=== PATIENT | male | born 1945 | race Caucasian/White ===

== ENCOUNTER 2020-02-02 09:27 | Outpatient (CLI) | payer MEDICARE, SELFPAY ==
--- NOTE | ~2020-02-02 | CT_ITS ---
EXAMINATION: CT lung screening DATE: 02/02/2020 09:46 INDICATION: Personal history of nicotine dependence TECHNIQUE: Computed tomography (CT) of the chest was performed without intravenous contrast. The dose -length product was 164.67 mGy-cm. Automated exposure control and iterative reconstruction technique were employed. COMPARISON: CT dated 04/21/2018 FINDINGS: There is atherosclerosis of the aorta and coronary arteries. No evidence for aneurysm. Hear t size normal. No significant pleural or pericardial effusion. There is a 3.6 x 2 cm left adrenal mas s consistent with adenoma. Stable small right adrenal mass also consistent with adenoma. Small hiatal hernia. Tiny 3 mm nodule right upper lobe unchanged, image 31. There is calcified granuloma in the r ight upper lobe. There is mild emphysema. There is atelectasis of the lower lung zones. Moderate thor acic spondylosis. IMPRESSION: 1. Lung-RADS category 2: Benign appearance or behavior. Continue annual screening with noncontrast lo w-dose chest CT in 12 months. Reviewed, dictated and finalized at location A. TRICAL PROSPECTOR IMPRESSION: 1. Lung-RADS category 2: Benign appearance or behavior. Continue annual screeni ng with noncontrast low-dose chest CT in 12 months.
== END 2020-02-02 09:28 | disposition home or self-care (01) ==
PROVIDERS: PCP Internal Medicine; Visit Provider Nurse Practitioner
DX: Z12.2 Encounter for screening for malignant neoplasm of respiratory organs (principal); Z87.891 Personal history of nicotine dependence
CPT/HCPCS: G0297

== ENCOUNTER 2020-04-18 10:47 | Outpatient (CLI) | payer MEDICARE, SELFPAY | END 2020-04-18 10:48 | disposition home or self-care (01) | LOC: ANHCOVIDVC 10:47 | PROVIDERS: PCP Internal Medicine | DX: Z23 Encounter for immunization (principal) | CPT/HCPCS: 0001A; 91300 ==

== ENCOUNTER 2020-05-09 10:19 | Outpatient (CLI) | payer MEDICARE, SELFPAY | END 2020-05-09 10:20 | disposition home or self-care (01) | LOC: ANHCOVIDVC 10:19 | PROVIDERS: PCP Internal Medicine | DX: Z23 Encounter for immunization (principal) | CPT/HCPCS: 0002A; 91300 ==

== ENCOUNTER → 2020-10-02 11:32 | Outpatient (REF) | payer MEDICARE, SELFPAY | LOC: ANHLAB 11:32 | PROVIDERS: PCP Internal Medicine; Visit Provider Nurse Practitioner | DX: D49.2 Neoplasm of unspecified behavior of bone, soft tissue, and skin (principal); L30.9 Dermatitis, unspecified | CPT/HCPCS: 88305 ==

== ENCOUNTER → 2021-08-23 09:16 | Outpatient (CLI) | payer MEDICARE, SELFPAY ==
--- NOTE | ~2021-08-23 | XR_ITS ---
XR lumbar spine 2-3V DATE: 08/23/2021 09:53 INDICATION: Low back pain TECHNIQUE: AP, lateral, coned lateral lumbosacral views COMPARISON: None FINDINGS: Osteopenia. Diffuse idiopathic skeletal hyperostosis of the thoracic spine. There is mild rotatory dextroscoliosis and severe degenerative disc of the lumbar spine. No fracture or bone destruction is evident. No spondylolisthesis. The included lower thoracic and lum bar pedicles are intact. The sacroiliac joints are intact. Status post bilateral total hip arthroplasty. IMPRESSION: Severe degenerative disc disease throughout the lumbar and lumbosacral spine Diffuse idiopathic skeletal hyperostosis of the thoracic spine Mild rotatory dextroscoliosis Osteopenia Status post bilateral total hip arthroplasty Reviewed, dictated and finalized at location A. IMPRESSION: Severe degenerative disc disease throughout the lumbar and lumbosac ral spine Diffuse idiopathic skeletal hyperostosis of the thoracic spine Mild rotatory dextroscoliosis Osteopenia Status post bilateral total hip arthroplasty
== END ==
PROVIDERS: PCP Internal Medicine; Visit Provider Nurse Practitioner
DX: M51.36 Other intervertebral disc degeneration, lumbar region (principal); M51.37 Other intervertebral disc degeneration, lumbosacral region; M85.88 Other specified disorders of bone density and structure, other site
CPT/HCPCS: 72100

== ENCOUNTER 2021-09-26 00:17 | Day surgery (SDC) | payer MEDICARE, SELFPAY ==
[2021-09-16 13:52] VITALS: BMI 28.6
--- NOTE | 2021-09-25 13:40 | PM.HPGS ---
History of Present Illness History of Present Illness Consent: Risks, benefits, and alternatives have been discussed and questions answered. Patient agrees to proceed with procedure. Chief complaint: neoplasm screening Narrative: Ricardo Lemos is a 75 year old male Referred for colon cancer screening. Review of Systems Review of Systems: All systems reviewed & are unremarkable except as noted in HPI and below PMFSH Past Medical History Medical History Benign prostatic hyperplasia FHx: prostate cancer Nicotine abuse Family History Family History Mother Family history of malignant neoplasm of stomach Father Malignant neoplasm of prostate Family history of malignant neoplasm of bone Social History Social History Smoking packs per day: 0.5 Smoking cigarettes per day: 10.0 Years smoked: 58 Smoking pack-years: 29.00 Smoking status: Current every day smoker Tobacco type: cigarettes Second hand tobacco smoke exposure: No Alcohol intake: current Drinks per week: 2 Alcohol use details: on occasion Substance use: never Substance use type: does not use Living arrangements: with family Spiritual care concerns: No Meds Home Medications and Allergies Home Medications Medication Instructions Recorded Confirmed Type vitamin B complex (B 1 tablet PO DAILY 02/06/21 09/26/21 History Complex-Vitamin B12 tablet) atorvastatin 20 mg tablet 20 mg PO DAILY #90 tabs 08/20/21 09/26/21 Rx tamsulosin 0.4 mg capsule 0.4 mg PO DAILY #90 caps 08/20/21 09/26/21 Rx Allergies Allergy/AdvReac Type Severity Reaction Status Date / Time No Known Allergies Allergy Verified 09/26/21 07:35 Exam Resp: Auscultation: clear to auscultation bilaterally Cardio: Rate: regular rate Rhythm: regular rhythm GI: GI Palp: Yes Soft to palpation and No Tenderness to palpation present (GI) Assessment and Plan Assessment and plan (1) Colon cancer screening: Code(s): Z12.11 - Encounter for screening for malignant neoplasm of colon Status: Acute Assessment and Plan: Colonoscopy with possible biopsy or polypectomy or cautery or injection of substances.
[2021-09-26 07:30] VITALS: BP 136/77; PULSE 59; RESP 18; TEMP 36.4; O2SAT 93; BMI 28.9
--- NOTE | 2021-09-26 07:52 | WPDANESEPPF ---
Anes - Initial Pre Proc Eval Procedure: Operation Date: 09/26/21 08:30 Proposed Procedures p Screening Colonoscopy - Mohamud Tinoco MD Date/Time: 09/26/21 07:52 Surgeon: Mohamud Tinoco MD Pre Op Diagnosis: neoplasm screening Patient Data Age: 75 Gender: M Height: 1.75 m Weight: 88.9 kg Last Vital Signs Temp 97.5 F L 09/26/21 07:30 Pulse 59 L 09/26/21 07:30 Resp 18 09/26/21 07:30 BP 136/77 09/26/21 07:30 Pulse Ox 93 09/26/21 07:30 O2 Del Method Room Air 09/26/21 07:30 Allergies Allergy/AdvReac Type Severity Reaction Status Date / Time No Known Allergies Allergy Verified 09/26/21 07:35 Home Medications Medication Instructions Recorded Confirmed Type vitamin B complex (B 1 tablet PO DAILY 02/06/21 09/26/21 History Complex-Vitamin B12 tablet) atorvastatin 20 mg tablet 20 mg PO DAILY #90 tabs 08/20/21 09/26/21 Rx tamsulosin 0.4 mg capsule 0.4 mg PO DAILY #90 caps 08/20/21 09/26/21 Rx Patient hx anesthesia problems: none Family hx anesthesia problems: none Results Review: All pre-operative results and documents have been reviewed as part of the pre-operative evaluation. [facility] Past Medical History Medical History Benign prostatic hyperplasia FHx: prostate cancer Nicotine abuse Family History Family History Mother Family history of malignant neoplasm of stomach Father Malignant neoplasm of prostate Family history of malignant neoplasm of bone Social History Social History Smoking packs per day: 0.5 Smoking cigarettes per day: 10.0 Years smoked: 58 Smoking pack-years: 29.00 Smoking status: Current every day smoker Tobacco type: cigarettes Second hand tobacco smoke exposure: No Alcohol intake: current Drinks per week: 2 Alcohol use details: on occasion Substance use: never Substance use type: does not use Living arrangements: with family Spiritual care concerns: No Anes - Eval Final PreProcedure Day of Procedure 08/18/22 07:52 Patient weight: normal Heart: regular rate and rhythm Lungs: clear to auscultation Airway: Mallampati scale class II Neurological: alert and oriented Last oral intake: >/= 8 hours ASA classification: II Emergent: no Anesthetic plan: proceed Anesthesia type and monitoring: general GIVS and standard monitoring Results Review: All pre-operative results and documents have been reviewed as part of the pre-operative evaluation. Informed Consent: The patient's anesthetic plan and its attendant risks and benefits were discussed with the patient/family/POA. Questions were solicited and answers provided to the satisfaction of the patient/family/POA.
[2021-09-26] MEDS: LACTATED RINGERS 1,000 ML 150 ML IV CONT (07:54)
--- NOTE | 2021-09-26 08:27 | ECG_ITS ---
Measurements Intervals [place] Rate: 79 P: 62 MI: 179 QRS: -50 QRSD: 83 T: 48 QT: 370 QTc: 426 Interpretive Statements SINUS RHYTHM WITH FREQUENT SUPRAVENTRICULAR PREMATURE COMPLEXES IN A BIGEMINAL PATTERN INFERIOR MYOCARDIAL INFARCTION [40+ ms Q WAVE AND/OR ST/T ABNORMALITY IN II/aVF], PROBABLY OLD ABNORMAL ECG Electronically Signed On 09-26-2021 9:40:30 CDT by Jeferson Sanchez M.D.
[2021-09-26 08:40] VITALS: BP 119/66; PULSE 47; RESP 21; O2SAT 97
--- NOTE | 2021-10-01 14:03 | SUR.PREOP ---
EM charges removed because of room charges applied
== END 2021-09-26 09:00 | disposition home or self-care (01) ==
PROVIDERS: PCP Internal Medicine; Visit Provider Internal Medicine Gastroenterology
PROC: 0DJD8ZZ Inspection of Lower Intestinal Tract, Via Natural or Artificial Opening Endoscopic (ICD-10-PCS; CPT 45378; principal; 2021-09-26 08:30)
DX: Z12.11 Encounter for screening for malignant neoplasm of colon (principal); Z53.09 Procedure and treatment not carried out because of other contraindication; R00.1 Bradycardia, unspecified; N40.0 Benign prostatic hyperplasia without lower urinary tract symptoms; Z85.46 Personal history of malignant neoplasm of prostate; F17.210 Nicotine dependence, cigarettes, uncomplicated; I25.2 Old myocardial infarction
CPT/HCPCS: G0121; 93005; J7120

== ENCOUNTER → 2022-04-15 09:27 | Outpatient (CLI) | payer MEDICARE, SELFPAY ==
--- NOTE | ~2022-04-15 | XR_ITS ---
EXAM: XR lumbar spine min 4V DATE: 04/15/2022 10:01 HISTORY: chronic Low back pain radiating down Rt leg . COMPARISON: 08/23/2021. Ultrasound aorta 01/09/2014. FINDINGS: Senescent/interstitial opacities in the lung bases. Lumbar scoliosis. Osteopenia. 5 nonrib- bearing lumbar-type vertebral bodies. Pedicles intact. Normal vertebral body alignment. Vertebral bod y heights preserved. Multilevel moderate-severe disc space narrowing and marginal osteophytosis. Vacu um disc phenomenon at L2-3 and L3-4. Multilevel facet hypertrophy and sclerosis with interspinous matthew rowing. No fracture or dislocation. 3.1 cm fusiform abdominal aortic aneurysm. Partially visualized b ilateral hip arthroplasties. IMPRESSION: Multilevel degenerative disc disease, severe at L2-3 and L3-4. Multilevel severe facet ar thropathy. 3.1 cm abdominal aortic aneurysm, recommend ultrasound of the aorta for further evaluation . Reviewed, dictated and finalized at location K. ULUS PROFESSOR IMPRESSION: Multilevel degenerative disc disease, severe at L2-3 and L3-4. Mult ilevel severe facet arthropathy. 3.1 cm abdominal aortic aneurysm, recommend ul trasound of the aorta for further evaluation.
--- NOTE | ~2022-04-15 | XR_ITS ---
EXAM: XR hip RT 2V w AP pelvis DATE: 04/15/2022 10:02 HISTORY: Pain in right hip, chronic low back pain . COMPARISON: 04/15/2014. FINDINGS: Decreased mineralization. No fracture or dislocation. No lytic or blastic lesion. Severe l umbar degenerative disc disease. Bilateral uncomplicated appearing hip arthroplasties, partially visu alized on the left. Scattered pelvic pelvic and hip enthesopathy and heterotopic bone formation super ior to the right greater trochanter. No erosion or periosteal change. Vascular calcifications. Pelvic phleboliths. IMPRESSION: No acute osseous finding in the pelvis or right hip. Small foci of heterotopic bone forma tion adjacent to the right greater trochanter. Otherwise, no radiographic evidence of hardware-relate d complication. Reviewed, dictated and finalized at location K. NCE ATTORNEY IMPRESSION: No acute osseous finding in the pelvis or right hip. Small foci of heterotopic bone formation adjacent to the right greater trochanter. Otherwise, no radiographic evidence of hardware-related complication.
== END ==
PROVIDERS: PCP Internal Medicine; Visit Provider Nurse Practitioner Family
DX: M25.551 Pain in right hip (principal); M51.36 Other intervertebral disc degeneration, lumbar region
CPT/HCPCS: 72110; 73502

== ENCOUNTER 2022-04-22 13:42 | Emergency (ER) | payer MEDICARE, SELFPAY ==
[2022-04-22 14:35] VITALS: BP 120/73; PULSE 79; RESP 14; TEMP 36.6; O2SAT 98
--- NOTE | 2022-04-22 16:00 | ED.GENADULT ---
HPI - General Adult General Chief complaint: Skin/Abscess/Foreign Body Stated complaint: wound Time Seen by Provider: 04/22/22 14:58 History of Present Illness HPI narrative: 76-year-old male presenting to the emergency department for evaluation of a right bursitis. Patient states over the last 2 weeks he started developing some redness and tenderness over his right elbow that began worsening over the last 3 days. Patient initially went to see his primary care physician and was sent in for further work-up for concern for septic arthritis. Related Data Home Medications Medication Instructions Recorded Confirmed vitamin B complex (B 1 tablet PO DAILY 02/06/21 05/02/22 Complex-Vitamin B12 tablet) Allergies Allergy/AdvReac Type Severity Reaction Status Date / Time No Known Allergies Allergy Verified 05/02/22 09:14 Review of Systems Review of Systems: All systems reviewed & are unremarkable except as noted in HPI and below PMFSH Past Medical History Medical History B12 deficiency Benign prostatic hyperplasia FHx: prostate cancer Low back pain Lung nodule, multiple Mixed hyperlipidemia Nicotine abuse Family History Family History Mother Family history of malignant neoplasm of stomach Father Malignant neoplasm of prostate Family history of malignant neoplasm of bone Social History Social History (Updated 05/02/22 @ 09:20 by Brenda Butler CMA) Smoking packs per day: 0.5 Smoking cigarettes per day: 10.0 Years smoked: 58 Smoking pack-years: 29.00 Smoking status: Current every day smoker Tobacco type: cigarettes Second hand tobacco smoke exposure: No Alcohol intake: current Drinks per week: 1 Substance use: never Substance use type: does not use Lack of Transportation: No Lack of Food: Never True Current Housing: I Have Housing Concerned About Future Housing: No Difficulty Paying Gas/Electric Bills: No Difficulty Paying for Meds: No Currently Unemployed: No Education: High School Diploma/GED Difficulty w/ Childcare or Family Care: No Living arrangements: with family Spiritual care concerns: No Exam Narrative: APPEARANCE: Well appearing, no pain, no distress, well-nourished. HEAD: normocephalic, atraumatic. EYES: PERRLA/EOMI, conjunctivae clear. NOSE: Normal no drainage NECK: Supple. No adenopathy, no masses. RESPIRATORY: Airway patent, respirations nonlabored. Clear to auscultation bilaterally, no rales, rhonchi, wheezing. CARDIOVASCULAR: Regular rate and rhythm without murmurs rubs or gallops. ABDOMINAL: Soft, nontender, nondistended, normal bowel sounds MUSCULOSKELETAL: Normal range of motion of the right elbow. No tenderness to palpation of the joint. Patient does have an inflamed bursa over the right elbow. Exam is consistent with a bursitis. NEURO: Alert. Cranial nerves II through XII intact. Grossly intact SKIN: Warm, dry. Normal Color Course Course Emergency Course: 76-year-old male presenting for possible septic bursitis. Abscess was drained with an 18-gauge needle and then with an 11-gauge needle. Copious amount of purulent material was obtained. Cultures were sent. Patient was encouraged of close follow-up with his primary care physician. All question concerns were addressed Vital Signs Vital signs: Vital Signs Temperature 97.9 F 04/22/22 14:35 Pulse Rate 79 04/22/22 14:35 Respiratory Rate 14 04/22/22 14:35 Blood Pressure 120/73 04/22/22 14:35 Pulse Oximetry 98 04/22/22 14:35 Oxygen Delivery Room Air 04/22/22 14:35 Temperature 97.9 F 04/22/22 14:35 Pulse Rate 79 04/22/22 14:35 Respiratory Rate 14 04/22/22 14:35 Blood Pressure 120/73 04/22/22 14:35 Pulse Oximetry 98 04/22/22 14:35 Oxygen Delivery Room Air 04/22/22 14:35 Procedures Abscess I/D upper extremity:
[2022-04-22] MEDS: LIDOCAINE HCL 1% LOCAL INJ 10 ML VIAL (16:30)
[2022-04-22] MEDS: CLINDAMYCIN HCL 150 MG CAP PO (16:54)
== END 2022-04-22 17:07 | disposition home or self-care (01) ==
PROVIDERS: Emergency Provider Emergency Medicine; PCP Internal Medicine
DX: M70.31 Other bursitis of elbow, right elbow (principal); E78.2 Mixed hyperlipidemia; E53.8 Deficiency of other specified B group vitamins; N40.0 Benign prostatic hyperplasia without lower urinary tract symptoms; F17.210 Nicotine dependence, cigarettes, uncomplicated
CPT/HCPCS: 20605; 23931; 87070; 87075; 87205; 99283; A9270

== ENCOUNTER 2022-07-30 01:34 | Day surgery (SDC) | payer MEDICARE, SELFPAY ==
--- NOTE | 2022-07-21 15:00 | PC.NURSE ---
Report to the Outpatient Waiting Room, entrance under the green pavilion located off [facility], at time _1130 on date _07/30/22 . Planned Procedure Time: _1330 . Time changes happen often and if your time is changed the preop area will call you the afternoon before. - You and your visitor will be asked to self-screen and do not enter if you have any COVID symptoms. - A mask is optional within the hospital at this time. Patients may have clear liquids (water, carbonated beverages, clear teas, apple juice) until 3 hours prior to surgery with a maximum of 20 ounces. - No food from midnight until time of surgery - Infants may have breast milk until 4 hours before surgery, infant formula 6 hours prior to surgery. - Children will be allowed to drink immediately following surgery. If applicable, please bring a bottle or sippy cup to assist with drinking. Juice, water, soda, and popsicles are readily available. For infants on formula, please bring formula the day of surgery. Pacifiers are allowed. Take the following medications with a SIP of water the morning of surgery: _NONE DO NOT STOP ANY OF YOUR OTHER PRESCRIPTION MEDICATIONS PRIOR TO SURGERY ?EXCEPT THE FOLLOWING Medications to discontinue per physician ____VITAMIN B12 3 DAYS PRE OP.LAST DOSE 07/26/22 Please no make-up, nail bahamian, hairspray, perfume, deodorant, or body powder the day of surgery. No jewelry (including any body piercings) or valuables the day of surgery, leave them at home. Please take a shower or bath the night before, or the morning of, surgery with an antibacterial soap. Wear comfortable, loose fitting clothing. Children are encouraged to wear pajamas. - Jewelry must be removed prior to entering the operating room. Rings and piercings that are not removed may be cut off. - The hospital will not accept responsibility for valuables. - Please leave all valuables, including medications, at home the day of surgery. If you are going home after surgery, a licensed courier driver must drive you home. - NO public transportation without another adult if you receive anesthesia. - We recommend that an adult stay with you for 24 hours following discharge. - We also recommend that you do not drive, make important decision, drink alcoholic beverages, or take any drugs that were not prescribed by your health care provider for at least 24 hours after your discharge time. For Pediatric surgeries, we recommend two adults accompany the child home. Follow any additional instructions given to you from your surgeon. If you or anyone in your household have experienced Covid symptoms in the past week, please notify your surgeon or the nurse liaison at the phone number below for possible testing. Telephone instructions given to __PATIENT and asked if any additional questions and then verbalized understanding. Patient advised to call surgeon office or pre surgery nurse liaison [phone] if any additional questions.
[2022-07-21 15:08] VITALS: BMI 27.7
--- NOTE | 2022-07-30 07:46 | WPDHPUPDATE1 ---
History and Physical Update Update Date/Time: 07/30/22 07:46 History and Physical has been reviewed, including an updated exam of the patient. There are NO changes in the patient's condition. Risks, benefits, and alternatives have been discussed and questions answered. Patient agrees to proceed with procedure.
[2022-07-30 07:53] VITALS: BP 113/51; PULSE 86; RESP 16; TEMP 36.3; O2SAT 96
[2022-07-30] MEDS: LACTATED RINGERS 1,000 ML 30 ML IV CONT (08:09)
--- NOTE | 2022-07-30 08:55 | WPDANESEPPF ---
Anes - Initial Pre Proc Eval Procedure: Operation Date: 07/30/22 09:30 Proposed Procedures p Excision Skin Cyst of Chest - Pradeep Thorne MD Date/Time: 07/30/22 08:55 Surgeon: Pradeep Thorne MD Pre Op Diagnosis: subcutaneous mass on chest Patient Data Age: 76 Gender: M Height: 1.75 m Weight: 83.6 kg Last Vital Signs Temp 36.3 C L 07/30/22 07:53 Pulse 86 07/30/22 07:53 Resp 16 07/30/22 07:53 BP 113/51 L 07/30/22 07:53 Pulse Ox 96 07/30/22 07:53 O2 Del Method Room Air 07/30/22 07:53 Allergies Allergy/AdvReac Type Severity Reaction Status Date / Time No Known Allergies Allergy Verified 07/30/22 07:35 Home Medications Medication Instructions Recorded Confirmed Type atorvastatin 20 mg tablet 20 mg PO DAILY #90 tabs 08/20/21 07/21/22 Rx tamsulosin 0.4 mg capsule 0.4 mg PO DAILY #90 caps 08/20/21 07/21/22 Rx cyanocobalamin (vitamin B-12) 1,000 mcg PO DAILY 07/21/22 07/21/22 History 1,000 mcg tablet ibuprofen 800 mg tablet 800 mg PO BID PRN Pain 07/21/22 07/21/22 History Patient hx anesthesia problems: none Family hx anesthesia problems: none Results Review: All pre-operative results and documents have been reviewed as part of the pre-operative evaluation. [facility] Past Medical History Medical History B12 deficiency Benign prostatic hyperplasia FHx: prostate cancer Low back pain Lung nodule, multiple Mixed hyperlipidemia Nicotine abuse Surgical History Surgical History (Updated 07/30/22 @ 08:55 by Iglesia Villarreal MD) H/O colonoscopy Family History Family History Mother Family history of malignant neoplasm of stomach Father Malignant neoplasm of prostate Family history of malignant neoplasm of bone Social History Social History Smoking packs per day: 0.5 Smoking cigarettes per day: 10.0 Years smoked: 60 Smoking pack-years: 30.00 Smoking status: Current every day smoker Tobacco type: cigarettes Second hand tobacco smoke exposure: No Alcohol intake: current Drinks per week: 1 Substance use: never Substance use type: does not use Lack of Transportation: No Lack of Food: Never True Current Housing: I Have Housing Concerned About Future Housing: No Difficulty Paying Gas/Electric Bills: No Difficulty Paying for Meds: No Currently Unemployed: No Education: High School Diploma/GED Difficulty w/ Childcare or Family Care: No Living arrangements: with family Spiritual care concerns: No Anes - Eval Final PreProcedure Day of Procedure 07/30/22 08:55 Patient weight: overweight Heart: regular rate and rhythm Lungs: clear to auscultation Airway: Mallampati scale class II Neurological: alert and oriented Last oral intake: 2 hours (black coffee 7am) ASA classification: III Emergent: no Anesthetic plan: proceed Anesthesia type and monitoring: general GIVS and standard monitoring Results Review: All pre-operative results and documents have been reviewed as part of the pre-operative evaluation. Informed Consent: The patient's anesthetic plan and its attendant risks and benefits were discussed with the patient/family/POA. Questions were solicited and answers provided to the satisfaction of the patient/family/POA.
[2022-07-30] MEDS: ceFAZolin 2 GM/D5W 50 ML 2 GM/50 ML BAG IVPB (09:28)
[2022-07-30] MEDS: BUPIVACAINE/EPINEPHRINE 0.5% 50 ML VIAL 30 ML INFILTRATE (09:49)
[2022-07-30 10:11] VITALS: BP 101/62; PULSE 73; RESP 16; O2SAT 94
--- NOTE | 2022-07-30 10:11 | W.PM.PROC2 ---
Procedure Note - Detailed Date of Procedure 07/30/22 Pre-op Diagnosis subcutaneous mass on chest Post-op Diagnosis Same Procedure Performed Excision 3.5 cm subcutaneous mass pre sternal chest with 2 mm margins, 3.9 cm excision. 8.6 cm layered closure Surgeon Pradeep Thorne MD Hand Buffing Wheel Former [facility] Anesthesia MAC and Local Indications Patient noticed a subcutaneous nodule in the center of his chest over his sternum about 2 months ago. It has increased in size. It has the appearance of an epithelial inclusion cyst. He is taken to surgery now for excision Findings Nodule was not entered. About 2 mm margins were taken around the nodule as well as the overlying skin. An 8.6 cm ellipse of skin was taken. The lesion was limited to the subcutaneous tissue. Description of Procedure Patient was seen in the preoperative holding area. The area of the subcutaneous nodule was marked on the skin. He was taken to surgery and anesthesia was introduced. The proposed incision was marked on the skin. This was a transversely oriented ellipse. Local was infiltrated throughout the skin and subcutaneous all around the anticipated area of incision as well as the area around the lesion. Incision was made and dissection was carried down through the skin. Cautery was used for hemostasis. The lesion was then dissected free from the subcutaneous taking about 2 mm margins all around it. The lesion did extend fairly deep into the subcutaneous but did not attached itself to any of the sternal tissues. It was completely removed. The lesion was measured and was 3.5 x 2.5 x 3 cm in dimension. The ellipse was a 0.6 cm in length. Additional local was infiltrated in the depths of the wound. Subcutaneous undermining was carried out in the deeper aspect of the subcutaneous on both the upper and lower aspect of the excision. Woody's fascia was then closed with interrupted 3-0 Vicryl suture. Some superficial subcutaneous 3-0 Vicryl sutures were also placed. The skin was loosely approximated with subcuticular interrupted 4-0 Vicryl skin suture. The skin was finally closed with a running 4-0 Monocryl skin suture. The wound was dressed with Exofin surgical adhesive. Patient was awakened and taken to recovery in good condition. Sponge and needle counts were correct x2. Estimated Blood Loss -2 Drains No Packing No Pathology Yes (Subcutaneous mass with overlying skin) Complications No immediate complications Condition Stable Disposition Same day [facility] Billing Surgery - Charge Forward: Surgery Billing (Excision 3.5 cm subcutaneous mass of the chest with 2 mm margins, 3.9 cm excision. 8.6 cm layered wound closure.)
[2022-07-30 10:41] VITALS: BP 117/59; PULSE 62; RESP 16; O2SAT 94
== END 2022-07-30 10:59 | disposition home or self-care (01) ==
PROVIDERS: PCP Nurse Practitioner Family; Visit Provider Surgery
PROC: (CPT 11604; principal; 2022-07-30 09:30)
DX: C79.2 Secondary malignant neoplasm of skin (principal); E78.5 Hyperlipidemia, unspecified; E53.8 Deficiency of other specified B group vitamins; N40.0 Benign prostatic hyperplasia without lower urinary tract symptoms; F17.210 Nicotine dependence, cigarettes, uncomplicated
CPT/HCPCS: 11604; 12034; 88304; 88313; 88342; J0690; J2405; J2704; J3010; J7120

== ENCOUNTER 2022-08-19 08:02 | Outpatient (CLI) | payer MEDICARE, SELFPAY ==
--- NOTE | ~2022-08-19 | MMUS_ITS ---
EXAMINATION: MM diagnostic kelly BI w navid, US breast BI complete HISTORY: Right chest wall mass TECHNIQUE: Full field and spot ML, MLO and CC 3-D tomosynthesis images of the breasts were performed and synthetic 2-D images were generated. CAD analysis was submitted and interpreted. High resolution bilateral targeted breast ultrasound examination was performed. COMPARISON: None BREAST PARENCHYMAL COMPOSITION: There are scattered areas of fibroglandular density. FINDINGS: MAMMOGRAPHIC FINDINGS: Approximately 2.5 cm irregular high density mass is noted in the mid to upper outer right breast. The irregular margins and high density highly suggestive of malignancy. There is an approximately 9 mm incompletely circumscribed mildly irregular mass in the posterior mid left breast. ULTRASOUND: Right breast: 9:00: Irregular heterogeneous hypoechoic solid mass measuring 2.7 x 2.4 x 2.6 cm, with prominent inte rnal vascularity, with through transmission. This lesion is very suspicious. Ultrasound-guided biopsy is recommended. Left breast: 3:00: 9.8 x 7.3 x 8.5 mm irregular hypoechoic solid lesion within completely circumcision margins, mancini spicious. Ultrasound-guided biopsy is recommended. IMPRESSION: 1. Bilateral suspicious breast masses 2. Bilateral ultrasound-guided breast biopsy is recommended BI-RADS category 4, suspicious findings. Reviewed, dictated and finalized at location A. IMPRESSION: 1. Bilateral suspicious breast masses 2. Bilateral ultrasound-guided breast biopsy is recommended BI-RADS category 4, suspicious findings.
== END 2022-08-19 08:03 | disposition home or self-care (01) ==
LOC: CHSIMG 08:04
PROVIDERS: PCP Nurse Practitioner Family; Visit Provider Surgery
DX: N64.59 Other signs and symptoms in breast (principal); R92.8 Other abnormal and inconclusive findings on diagnostic imaging of breast
CPT/HCPCS: 76641; 76642; 77061; 77062; 77065; 77066; G0279

== ENCOUNTER 2022-08-20 10:16 | Outpatient (CLI) | payer MEDICARE, SELFPAY ==
[2022-08-20 10:39] LABS: Basophils Absolute Auto 0.2 K/mm3 (0.0-0.1); Basophils Percent Auto 1.3 % (0.2-1.2); Eosinophils Absolute Auto 0.2 K/mm3 (0-0.3); Eosinophils Percent Auto 1.7 % (0-4.4); Hematocrit 43.2 % (42.0-52.0); Hemoglobin 13.9 g/dL (14.0-18.0); Immature Granulocyte Absolute 0.28 K/mm3 (0.00-0.031); Immature Granulocyte Percent A 2.4 % (0-0.5); Lymphocytes Absolute Auto 1.49 K/mm3 (0.9-3.2); Lymphocytes Percent Auto 12.8 % (18.3-44.2); Mean Corpuscular HGB Conc 32.2 g/dl (32-36); Mean Corpuscular Hemoglobin 31.5 pg (26-34); Mean Platelet Volume 8.1 fl (7.4-10.4); Monocytes Absolute Auto 1.5 K/mm3 (0.1-0.6); Monocytes Percent Auto 13.1 % (2.6-8.5); Neutrophils Percent Auto 68.7 % (45.5-73.1); Platelet Count Result 501 k/mm3 (150-375); Red Blood Count 4.41 M/mm3 (4.6-6.20); Red Cell Distribution Width 13.2 % (11.5-14.5); White Blood Count 11.6 K/mm3 (4.5-10.0)
[2022-08-20 14:44] LABS: Alanine Aminotransferase 21 U/L (6-50); Alkaline Phosphatase 101 U/L (38-126); Anion Gap -1 mmol/L (8-16); Aspartate Amino Transferase 27 U/L (17-59); Bilirubin,Total 0.5 mg/dL (0.2-1.3); Blood Urea Nitrogen 13 mg/dL (9-20); Calcium 9.1 mg/dL (8.4-10.2); Carbon Dioxide 36 mmol/L (22-30); Chloride 95 mmol/L (98-107); Estimated Glomerular Filt Rate > 60; Glucose 86 mg/dL (65-110); Potassium 4.5 mmol/L (3.4-5.0); Sodium 130 mmol/L (137-145)
[2022-08-23 05:56] LABS: CA 15-3 526 U/mL (<32)
== END 2022-08-20 10:17 | disposition home or self-care (01) ==
LOC: ANHLAB 10:18
PROVIDERS: PCP Nurse Practitioner Family; Visit Provider Internal Medicine Hematology & Oncology
DX: C50.921 Malignant neoplasm of unspecified site of right male breast (principal); C50.922 Malignant neoplasm of unspecified site of left male breast
CPT/HCPCS: 36415; 80053; 85025; 86300

== ENCOUNTER → 2022-08-21 09:10 | Outpatient (REF) | payer MEDICARE, SELFPAY | LOC: ANHLAB 09:10 | PROVIDERS: Visit Provider Physician Assistant Surgical | DX: R92.8 Other abnormal and inconclusive findings on diagnostic imaging of breast (principal); N63.10 Unspecified lump in the right breast, unspecified quadrant | CPT/HCPCS: 88305; 88342 ==

== ENCOUNTER → 2022-08-25 07:59 | Outpatient (CLI) | payer MEDICARE, SELFPAY ==
--- NOTE | ~2022-08-25 | MR_ITS ---
MRI of the lumbar spine Clinical History: Spinal stenosis Technique: Axial T2-weighted images, and sagittal T1-weighted, T2-weighted, and T2 fat-sat images wer e acquired. Findings: There is no fracture or subluxation of the lumbar spine. There is mild dextroscoliosis of l umbar spine. No suspicious bone marrow signal abnormality seen. At L1-L2, there is advanced degenerative disc narrowing with minimal disc bulge. There is moderate fa cet arthropathy. No central canal stenosis. There is moderate left neural foraminal narrowing and mod erate to severe right neural foraminal narrowing. At L2-L3, there is moderate degenerative disc narrowing. There is diffuse disc bulge and moderate fac et arthropathy. No harrison central canal stenosis. There is moderate to severe bilateral neural foramin al narrowing. At L3-L4, there is severe degenerative disc narrowing. There is disc bulge and severe facet arthropat hy, resulting in moderate to severe central canal stenosis. There is moderate to severe bilateral ivy ral foraminal narrowing. At L4-L5, there is severe degenerative disc narrowing. There is diffuse disc bulge with advanced face t arthropathy and right lateral recess stenosis. There is severe bilateral neural foraminal narrowing , right worse than left. At L5-S1, there is minimal disc bulge. There is severe facet arthropathy, right worse than left. No c entral canal stenosis. There is severe right neural foraminal narrowing. Left neural foramen is minim ally narrowed. There are large mass lesions in the pelvis which appear to arise of the bilateral iliac bones, measur ing at least 7.6 m in diameter on the right, and 6.5 cm in diameter on the left. Impression: Large mass lesions bilaterally in the pelvis, which appear to possibly arise from the bilateral iliac bones, as detailed above. Neoplastic/metastatic lesions are suspected. These are incompletely includ ed given the relative narrow [id number] for L-spine MR. Contrast-enhanced abdominopelvic CT scan r ecommended for best initial assessment. Follow-up pelvic MR imaging may be of use as well. 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 Reviewed, dictated and finalized at location M. Impression: Large mass lesions bilaterally in the pelvis, which appear to possibly arise fr om the bilateral iliac bones, as detailed above. Neoplastic/metastatic lesions are suspected. These are incompletely included given the relative narrow field- of-view for L-spine MR. Contrast-enhanced abdominopelvic CT scan recommended fo r best initial assessment. Follow-up pelvic MR imaging may be of use as well. 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
== END ==
DX: M48.062 Spinal stenosis, lumbar region with neurogenic claudication (principal); M47.896 Other spondylosis, lumbar region
CPT/HCPCS: 72148

== ENCOUNTER 2022-09-04 13:04 | Outpatient (CLI) | payer MEDICARE, SELFPAY ==
--- NOTE | ~2022-09-04 | PE_ITS ---
EXAMINATION: PET skull to mid thigh DATE: 09/04/2022 15:15 INDICATION: Bilateral breast cancer in a male TECHNIQUE: Blood glucose level was 94 mg/dL. 7.331 mCi of 18-fluorodeoxyglucose (18-FDG) was administ ered i.v. Low dose computed tomography (CT) images were acquired from the base of the brain to the pr oximal thighs for attenuation correction and anatomic localization. Positron emission tomography (PET ) images were acquired in the same distribution beginning 63 minutes after injection. Images includin g fused PET/CT images were reconstructed in axial, coronal, and sagittal planes. Automated exposure c ontrol technique was employed. The dose-length product was 617.74mGy-cm. COMPARISON: None FINDINGS: 7.3 x 6.5 cm markedly FDG avid infrahilar mass in the right lower lobe with maximal SUV of 35.6. Ther e is likely secondary right middle lobe collapse. There is a conglomeration of enlarged FDG avid righ t hilar lymph nodes together measuring approximately 3 x 2.5 cm with maximal SUV of 35.6. There are c ouple normal-sized but FDG avid right paratracheal lymph nodes also suspicious for metastatic disease . Groundglass opacities and septal line thickening in the more peripheral basilar segments of the rig ht lower lobe where there is also increased prominence of the pulmonary veins relative to the contral ateral left lower lobe which suggests pulmonary venous congestion and pulmonary edema secondary to ma ss effect upon the draining pulmonary veins from the right lower lobe mass. The mass also appears to compress the right lower lobar bronchus and differential lung disease would include postobstructive p neumonia. There are numerous FDG avid lytic bone lesions throughout the axial and appendicular skeleton consist ent with metastatic disease. The largest are centered at the left and right innominate bones were the re is prominent extraosseous extension. On the right the FDG avid mass measures approximately 9.0 x 8 .2 cm with maximal SUV of 52.9. There is secondary osseous destruction of the medial aspect of the ri ght innominate bone and adjacent right sacral ala with the mass extending into both the deeper right iliac is muscle and more superficial right gluteus medius muscles. On the left the mass measures 9.9 x 7.0 cm with maximal SUV of 27.0. There is a more permeative appearance with less harrison destruction of the bone and innominate bone but similar degree of muscular invasion of the iliac accident gluteus medius medius musculature. There are also numerous FDG avid soft tissue density nodules scattered throughout the neck, chest, ab domen and pelvis. Several of these such as in the left jugular chain, right parotid gland, bilateral axilla, mesentery and retroperitoneum of the abdomen and pelvis likely reflect metastatic lymph nodes which do not appear significantly enlarged. Numerous lesions however are seen scattered throughout t he musculature and body wall fat. One of the largest such soft tissue deposits seen at the lateral ri ght breast which measures 3.2 x 2.5 cm with maximal SUV of 21.4. This also includes a tiny FDG avid n odule with maximal SUV of 15.3 within a otherwise, diffusely macroscopic fat attenuation right pector al intramuscular lipoma. Heart size is normal. Atherosclerotic coronary artery calcific location. No pericardial effusion. Tho racic aorta is normal in caliber. Small sliding-type hiatal hernia. No evident FDG avid lesions along the esophagus. There is moderate colonic diverticulosis with a sigmoid predominance and without ed cent inflammatory change to suggest diverticulitis. Typical distribution of mild likely physiologic F DG uptake along portions of the bowels with no more intensely FDG avid lesions to suggest a primary m alignancy. Small calcified gallstones in the otherwise normal gallbladder. Physiologic renal accumula tion and excretion of FDG activity in the kidneys, bladder and along portions of ur
[2022-09-04 13:24] LABS: Glucose Point of Care 94 mg/dl (65-105)
== END 2022-09-04 13:05 | disposition home or self-care (01) ==
PROVIDERS: PCP Nurse Practitioner Family; Visit Provider Internal Medicine Hematology & Oncology
DX: C50.421 Malignant neoplasm of upper-outer quadrant of right male breast (principal)
CPT/HCPCS: 78815; A9552

== ENCOUNTER 2022-09-11 11:19 | Outpatient (CLI) | payer MEDICARE, SELFPAY ==
[2022-09-11 11:36] LABS: Kit Draw Collected
== END 2022-09-11 11:20 | disposition home or self-care (01) ==
LOC: ANHLAB 11:21
PROVIDERS: PCP Nurse Practitioner Family; Visit Provider Internal Medicine Hematology & Oncology
DX: C79.51 Secondary malignant neoplasm of bone (principal)
CPT/HCPCS: 36415

== ENCOUNTER 2022-09-18 08:29 | Outpatient (CLI) | payer MEDICARE, SELFPAY ==
--- NOTE | ~2022-09-18 | NM_ITS ---
EXAMINATION: NM bone scan whole body DATE: 09/18/2022 14:02 INDICATION: Cancer metastatic to bone. TECHNIQUE: 24.4 mCi Tc-99m HDP was administered intravenously. Delayed whole-body scintigrams were o btained. COMPARISON: PET/CT 09/04/2022 FINDINGS: There is increased activity in proximal right humerus correlating with an aggressive lytic lesion by CT. There is increased activity in the iliac bones and right sacral ala correlating with ag gressive lytic lesions by CT. There are bilateral hip arthroplasties without increased activity. IMPRESSION: 1. Increase activity in proximal right humerus, the iliac bones, and the sacrum correlating with aggr essive lytic lesions by CT, consistent metastatic disease. Reviewed, dictated and finalized at location A. IMPRESSION: 1. Increase activity in proximal right humerus, the iliac bones, and the sacrum correlating with aggressive lytic lesions by CT, consistent metastatic disease .
--- NOTE | ~2022-09-18 | CT_ITS ---
EXAMINATION: CT brain w con DATE: 09/18/2022 09:10 INDICATION: Cancer, metastatic to bone. TECHNIQUE: Computed tomography (CT) of the head was performed with 100 mL Omnipaque 350 intravenous c ontrast. The mA was adjusted according to patient size. Iterative reconstruction technique was employ ed. The dose-length product was 605.33 mGy-cm. COMPARISON: Head CT 09/04/2022 FINDINGS: There is an old infarct in left cerebellum. There is an old infarct in right frontal lobe. There are scattered areas of low attenuation in the cerebral white matter, which is within normal bronson its for the patient's age. There is no intracranial hemorrhage, acute infarction, or abnormal intracr anial mass lesion. The ventricles are normal in size. There is mild mucosal thickening in the paranas al sinuses. There is a small left mastoid effusion. The orbits are normal. There is an old fracture o f anterior right skull and roof of right orbit. There are nonaggressive lytic lesions in the parietal bones on either side of the sagittal suture, likely benign. IMPRESSION: 1. No specific evidence of metastatic disease. 2. 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 Reviewed, dictated and finalized at location A.
== END 2022-09-18 08:30 | disposition home or self-care (01) ==
PROVIDERS: PCP Nurse Practitioner Family; Visit Provider Internal Medicine Hematology & Oncology
DX: C79.51 Secondary malignant neoplasm of bone (principal); Z86.73 Personal history of transient ischemic attack (TIA), and cerebral infarction without residual deficits
CPT/HCPCS: 70460; 78306; A9503; Q9967

== ENCOUNTER 2022-09-22 03:40 | Day surgery (SDC) | payer MEDICARE, SELFPAY ==
--- NOTE | 2022-09-15 15:25 | PC.NURSE ---
Report to the Outpatient Waiting Room, entrance under the green pavilion located off [facility], at time __1000 on date __09/22/22 . Planned Procedure Time: ___1200 . Time changes happen often and if your time is changed the preop area will call you the afternoon before. - You and your visitor will be asked to self-screen and do not enter if you have any COVID symptoms. - A mask is optional within the hospital at this time. Patients may have clear liquids (water, carbonated beverages, clear teas, apple juice) until 3 hours prior to surgery with a maximum of 20 ounces. - No food from midnight until time of surgery - Infants may have breast milk until 4 hours before surgery, infant formula 6 hours prior to surgery. - Children will be allowed to drink immediately following surgery. If applicable, please bring a bottle or sippy cup to assist with drinking. Juice, water, soda, and popsicles are readily available. For infants on formula, please bring formula the day of surgery. Pacifiers are allowed. Take the following medications with a SIP of water the morning of surgery: ____NONE DO NOT STOP ANY OF YOUR OTHER PRESCRIPTION MEDICATIONS PRIOR TO SURGERY ?EXCEPT THE FOLLOWING Medications to discontinue per physician ALL VITAMINS 3 DAYS PRE OP .LAST DOSE 09/19/22 Please no make-up, nail brazilian, hairspray, perfume, deodorant, or body powder the day of surgery. No jewelry (including any body piercings) or valuables the day of surgery, leave them at home. Please take a shower or bath the night before, or the morning of, surgery with an antibacterial soap. Wear comfortable, loose fitting clothing. Children are encouraged to wear pajamas. - Jewelry must be removed prior to entering the operating room. Rings and piercings that are not removed may be cut off. - The hospital will not accept responsibility for valuables. - Please leave all valuables, including medications, at home the day of surgery. If you are going home after surgery, a licensed delivery driver/customer service must drive you home. - NO public transportation without another adult if you receive anesthesia. - We recommend that an adult stay with you for 24 hours following discharge. - We also recommend that you do not drive, make important decision, drink alcoholic beverages, or take any drugs that were not prescribed by your health care provider for at least 24 hours after your discharge time. Follow any additional instructions given to you from your surgeon. If you or anyone in your household have experienced Covid symptoms in the past week, please notify your surgeon or the nurse liaison at the phone number below for possible testing. Telephone instructions given to __PATIENT and asked if any additional questions and then verbalized understanding. Patient advised to call surgeon office or pre surgery nurse liaison [phone] if any additional questions.
[2022-09-15 15:36] VITALS: BMI 27.1
--- NOTE | ~2022-09-22 | XR_ITS ---
EXAMINATION: XR fl guide central line place DATE: 09/22/2022 12:01 INDICATION: Port placement. TECHNIQUE: A single intraoperative fluoroscopic view of the chest was obtained. I was not present. Fl uoroscopy exposure time was 13 seconds. COMPARISON: None. FINDINGS: There is a left subclavian port with tip not included. There is deviation of the catheter b etween the clavicle and first rib. IMPRESSION: 1. Left subclavian port with tip not included. Reviewed, dictated and finalized at location A.
--- NOTE | ~2022-09-22 | XR_ITS ---
EXAMINATION: XR chest port-a-cath/central DATE: 09/22/2022 12:22 INDICATION: Port catheter insertion TECHNIQUE: frontal view of the chest was obtained. COMPARISON: Chest CT dated 02/02/2020 FINDINGS: Left subclavian central venous port catheter with distal tip at the midsuperior vena cava. There is m ild kink in the course of the catheter without evident flattening or evident catheter fracture where it passes between the medial left first rib and the clavicle. Patient is rotated towards the right. Masslike opacity in the right hilar region with more peripheral consolidation in the right middle lobe, the or more concerning for malignancy in the latter concerni ng for pneumonia. Heart size is normal. Mild to moderate degenerative skeletal changes in the thoraci c spine and bilateral shoulders. IMPRESSION: 1. Left subclavian central venous port catheter tip in the midsuperior vena cava. There is a mild kin k in the course of the catheter where it passes between the left clavicle and first rib which could p redispose towards pincer off syndrome and potentially catheter fracture. 2. Consolidation the right middle lobe with more masslike opacity in the right hilar region which lama ses concern for malignancy and postobstructive pneumonia. Recommend further evaluation with pre and p ostcontrast chest CT of prior outside imaging is unavailable for comparison. Reviewed, dictated and finalized at location A. IMPRESSION: 1. Left subclavian central venous port catheter tip in the midsuperior vena cav a. There is a mild kink in the course of the catheter where it passes between t he left clavicle and first rib which could predispose towards pincer off syndro me and potentially catheter fracture. 2. Consolidation the right middle lobe with more masslike opacity in the right hilar region which raises concern for malignancy and postobstructive pneumonia. Recommend further evaluation with pre and postcontrast chest CT of prior outsi de imaging is unavailable for comparison.
--- NOTE | 2022-09-22 10:01 | PM.IMHP ---
H&P: HPI History of Present Illness Date/Time: 09/22/22 10:01 Chief Complaint: metastatic cancer, unknown primary Narrative: Pt is a 76 y/o M presenting c widely metastatic cancer c unknown primary. Pt had PET showing diffuse spread, likely lung primary. Pt is here today for VAD placement for chemotherapy access. Pt is R handed and denies previous central venous catheterization. Review of Systems Review of Systems: All systems reviewed & are unremarkable except as noted in HPI and below PMFSH Past Medical History Medical History B12 deficiency Benign prostatic hyperplasia Bursitis of right elbow FHx: prostate cancer Low back pain Lung nodule, multiple Mixed hyperlipidemia Nicotine abuse Surgical History Surgical History H/O colonoscopy History of excision of mass excision 3.5 cm subcutaneous mass presternal chest w/2mm margins, 3.9 cm excision. 8.6 cm layered closure 07/30/22 Family History Family History Mother Family history of malignant neoplasm of stomach Father Malignant neoplasm of prostate Family history of malignant neoplasm of bone Social History Social History Smoking packs per day: 0.5 Smoking cigarettes per day: 10.0 Years smoked: 60 Smoking pack-years: 30.00 Smoking status: Current every day smoker Tobacco type: cigarettes Second hand tobacco smoke exposure: No Additional smoking assessment comments: smokes 1/2 pack per day Alcohol intake: current Drinks per week: 1 Substance use: never Substance use type: does not use Lack of Transportation: No Lack of Food: Never True Current Housing: I Have Housing Concerned About Future Housing: No Difficulty Paying Gas/Electric Bills: No Difficulty Paying for Meds: No Currently Unemployed: No Education: High School Diploma/GED Difficulty w/ Childcare or Family Care: No Living arrangements: with family Spiritual care concerns: No Meds Home Medications and Allergies Home Medications Medication Instructions Recorded Confirmed Type cyanocobalamin (vitamin B-12) 1,000 mcg PO DAILY 07/21/22 09/17/22 History 1,000 mcg tablet ibuprofen 800 mg tablet 800 mg PO BID PRN Pain 07/21/22 09/17/22 History atorvastatin 20 mg tablet 20 mg PO DAILY #90 tabs 08/07/22 09/17/22 Rx tamsulosin 0.4 mg capsule 0.4 mg PO DAILY #90 caps 08/07/22 09/17/22 Rx Allergies Allergy/AdvReac Type Severity Reaction Status Date / Time No Known Allergies Allergy Verified 09/17/22 13:50 Exam Const: General: cooperative, comfortable, no acute distress and ill appearing Resp: Auscultation: clear to auscultation bilaterally Cardio: Rate: regular rate Rhythm: regular rhythm GI: Inspection: normal to inspection Assessment and Plan Assessment and plan (1) Metastatic malignant neoplasm of unknown primary site: Code(s): C79.9 - Secondary malignant neoplasm of unspecified site; C80.1 - Malignant (primary) neoplasm, unspecified Status: Acute Assessment and Plan: will setup for VAD placement for chemo access
--- NOTE | 2022-09-22 10:42 | WPDHPUPDATE1 ---
History and Physical Update Update Date/Time: 09/22/22 10:42 History and Physical has been reviewed, including an updated exam of the patient. There are NO changes in the patient's condition. Risks, benefits, and alternatives have been discussed and questions answered. Patient agrees to proceed with procedure.
[2022-09-22 11:01] VITALS: BP 107/64; PULSE 78; RESP 78; TEMP 37.3; O2SAT 95
[2022-09-22] MEDS: KETOROLAC 15 MG/ML VIAL (*BKC) IV PUSH (11:05)
[2022-09-22 11:12] LABS: Partial Thromboplastin Time 31.1 SECONDS (22.3-36.8)
--- NOTE | 2022-09-22 11:15 | WPDANESEPPF ---
Anes - Initial Pre Proc Eval Procedure: Operation Date: 09/22/22 11:30 Proposed Procedures p Insertion Raiza Cath - Soumya Vazquez MD Date/Time: 09/22/22 11:15 Surgeon: Soumya Vazquez MD Pre Op Diagnosis: CA Metastatic to Bone Patient Data Age: 76 Gender: M Height: 1.75 m Weight: 99.1 kg Last Vital Signs Temp 99.1 F 09/22/22 11:01 Pulse 78 09/22/22 11:01 Resp 78 H 09/22/22 11:01 BP 107/64 09/22/22 11:01 Pulse Ox 95 09/22/22 11:01 O2 Del Method Room Air 09/22/22 11:01 Allergies Allergy/AdvReac Type Severity Reaction Status Date / Time No Known Allergies Allergy Verified 09/22/22 10:46 Home Medications Medication Instructions Recorded Confirmed Type cyanocobalamin (vitamin B-12) 1,000 mcg PO DAILY 07/21/22 09/17/22 History 1,000 mcg tablet ibuprofen 800 mg tablet 800 mg PO BID PRN Pain 07/21/22 09/17/22 History atorvastatin 20 mg tablet 20 mg PO DAILY #90 tabs 08/07/22 09/17/22 Rx tamsulosin 0.4 mg capsule 0.4 mg PO DAILY #90 caps 08/07/22 09/17/22 Rx Laboratory Tests 09/22/22 10:56 PT 14.0 Seconds (11.1-14.7) INR 1.0 APTT 31.1 SECONDS (22.3-36.8) Patient hx anesthesia problems: none Family hx anesthesia problems: none Results Review: All pre-operative results and documents have been reviewed as part of the pre-operative evaluation. [facility] Past Medical History Medical History B12 deficiency Benign prostatic hyperplasia Bursitis of right elbow FHx: prostate cancer Low back pain Lung nodule, multiple Mixed hyperlipidemia Nicotine abuse Surgical History Surgical History H/O colonoscopy History of excision of mass excision 3.5 cm subcutaneous mass presternal chest w/2mm margins, 3.9 cm excision. 8.6 cm layered closure 07/30/22 Family History Family History Mother Family history of malignant neoplasm of stomach Father Malignant neoplasm of prostate Family history of malignant neoplasm of bone Social History Social History Smoking packs per day: 0.5 Smoking cigarettes per day: 10.0 Years smoked: 60 Smoking pack-years: 30.00 Smoking status: Current every day smoker Tobacco type: cigarettes Second hand tobacco smoke exposure: No Additional smoking assessment comments: smokes 1/2 pack per day Alcohol intake: current Drinks per week: 1 Substance use: never Substance use type: does not use Lack of Transportation: No Lack of Food: Never True Current Housing: I Have Housing Concerned About Future Housing: No Difficulty Paying Gas/Electric Bills: No Difficulty Paying for Meds: No Currently Unemployed: No Education: High School Diploma/GED Difficulty w/ Childcare or Family Care: No Living arrangements: with family Spiritual care concerns: No Anes - Eval Final PreProcedure Day of Procedure 09/22/22 11:15 Patient weight: obese Heart: regular rate and rhythm Lungs: clear to auscultation Airway: Mallampati scale class II Neurological: alert and oriented Last oral intake: >/= 8 hours ASA classification: III Emergent: no Anesthetic plan: proceed Anesthesia type and monitoring: general GIVS and standard monitoring Results Review: All pre-operative results and documents have been reviewed as part of the pre-operative evaluation. Informed Consent: The patient's anesthetic plan and its attendant risks and benefits were discussed with the patient/family/POA. Questions were solicited and answers provided to the satisfaction of the patient/family/POA.
[2022-09-22] MEDS: LACTATED RINGERS 1,000 ML 30 ML IV CONT (11:17)
[2022-09-22] MEDS: ceFAZolin 2 GM/D5W 50 ML 2 GM/50 ML BAG IVPB (11:23)
[2022-09-22] MEDS: HEPARIN SODIUM 5,000 UNITS/ML VIAL 5000 UNITS IRRIGATION (11:41)
[2022-09-22] MEDS: HEPARIN SODIUM, PORCINE 10,000 UNITS/10 ML VIAL 3000 UNITS IV PUSH (11:42)
[2022-09-22] MEDS: BUPIVACAINE/EPINEPHRINE 0.25% 10 ML VIAL 30 ML INFILTRATE (11:45)
--- NOTE | 2022-09-22 11:57 | W.PM.PROC2 ---
Procedure Note - Detailed Date of Procedure 09/22/22 Pre-op Diagnosis metastatic cancer, unknown primary Post-op Diagnosis Same Procedure Performed placement of left subclavian venous access device under fluroscopic guidance Surgeon Soumya Vazquez MD Anesthesia MAC and Local Indications 76 y/o M c metastatic cancer of unknown primary requiring chemotherapy Findings first stick L SCV Description of Procedure Patient was brought into the operating room and placed in the supine position. After adequate induction of mac anesthesia, the patient was prepped and draped in normal sterile fashion. Time-out was then done to verify the patient's identity, as well as the procedure being performed. I began by making a small incision in the left chest, I then gained access into the left subclavian vein with an 18 gauge needle. I then placed the guidewire into the vein and confirmed placement via fluoroscopic guidance. I then locally anesthetized the area in the left chest. I then enlarged the incision around the guidewire including making a subcutaneous pocket inferiorly to allow placement of the port itself. I then placed a dilating sheath over the guidewire into the left subclavian vein via sterile Seldinger technique. This was once again done and confirmed via fluoroscopic guidance. I then removed the dilator and the guidewire, now just leaving the sheath in the vein. I then fed the previously flushed catheter into the left subclavian vein under fluoroscopic guidance. At approximately 24 cm, the catheter was noted to be near the atrial caval junction. I then peeled away the sheath, now just leaving the catheter in the vein. I then was able to easily draw and flush from the catheter. The catheter was cut to fit and attached to the port itself. The port was placed into the previously made subcutaneous pocket and sutured in with 0 Ethibond suture. Final fluoroscopic view showed the termination of the catheter at the atrial caval junction with a nice smooth curvature back to the port itself. I was able to gain access to the port with a Mejia needle and was able to easily draw and flush from the port. I then flushed 4 cc of a final heparin flush into the port. The incision was closed with 3 0 Vicryl suture in the subcutaneous tissue and the skin was closed with 4 O Monocryl subcuticular suture. Dermabond was then placed on wound. The patient tolerated the procedure well and will be sent to the recovery room in stable condition. Implants L SCV VAD Estimated Blood Loss 5 Drains No Packing No Pathology None sent Complications No immediate complications Condition Stable Disposition PACU [facility] Billing Surgery - Charge Forward: Surgery Billing
[2022-09-22 12:08] VITALS: BP 98/61; PULSE 82; RESP 14; O2SAT 95
[2022-09-22 12:35] VITALS: BP 107/58; PULSE 79; RESP 20
[2022-09-22] MEDS: oxyCODONE HCL (*CRX) 5 MG TAB IR PO (12:41)
[2022-09-22 13:05] VITALS: BP 115/61; PULSE 73; RESP 20
[2022-09-22 13:25] VITALS: BP 118/60; PULSE 73; RESP 20
== END 2022-09-22 13:30 | disposition home or self-care (01) ==
PROVIDERS: PCP Nurse Practitioner Family; Visit Provider Surgery
PROC: (CPT 36561; principal; 2022-09-22 11:30)
DX: C79.9 Secondary malignant neoplasm of unspecified site (principal); N40.0 Benign prostatic hyperplasia without lower urinary tract symptoms; E78.2 Mixed hyperlipidemia; F17.210 Nicotine dependence, cigarettes, uncomplicated; E66.9 Obesity, unspecified; Z68.32 Body mass index [BMI] 32.0-32.9, adult
CPT/HCPCS: 36561; 36415; 77001; 85610; 85730; A9270; C1788; J0690; J1644; J1885; J2405; J2704; J3010; J7030; J7120

== ENCOUNTER 2022-09-29 09:38 | Inpatient (IN) | payer MEDICARE, SELFPAY ==
[2022-09-29] VITALS (46 sets, daily range): BP systolic 87–126; BP diastolic 46–73; PULSE 68–98; RESP 13–23; TEMP 36.4–36.9; O2SAT 85–100; BMI 25.5
--- NOTE | ~2022-09-29 | XR_ITS ---
EXAMINATION: XR shoulder RT min 2V DATE: 09/29/2022 11:44 INDICATION: Right shoulder pain. Fall. TECHNIQUE: 4 views of right shoulder were obtained. COMPARISON: Right shoulder radiographs 04/15/2014 FINDINGS: Bone alignment is normal. No fracture. There is a lytic lesion in proximal right humerus at the surgical neck. There is severe osteoarthritis of glenohumeral joint and moderate osteoarthritis of acromioclavicular joint. There are loose bodies in the glenohumeral joint. There is a right hilar mass, consistent with malignancy. There is a port tip in superior vena cava. IMPRESSION: 1. Lytic lesion in proximal right humerus, consistent metastatic disease. 2. Right hilar mass, consistent with malignancy. 3. Polyarticular osteoarthritis. Loose bodies in right glenohumeral joint. Reviewed, dictated and finalized at location A.
--- NOTE | ~2022-09-29 | CT_ITS ---
EXAMINATION: CT brain wo con INDICATION: Transient alteration of awareness, history of lung cancer COMPARISON: 09/19/2019 TECHNIQUE: Standard unenhanced head CT. The dose-length product (DLP) was 681.00 mGy-cm. The mA was a djusted according to patient size. Iterative reconstruction technique was employed. FINDINGS: No acute intraparenchymal hemorrhage. No evidence of mass lesion. No evidence of acute infa rction. 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 There is mild per iventricular and subcortical hypodensity probably related to small vessel ischemic disease. There is mild prominence of the sulci and ventricles related to cerebral atrophy. Intracranial calcified cereb ral atherosclerosis is noted. No extra-axial collections. No mass effect or midline shift. The orbits and soft tissues are unremarkable. The visualized sinuses and mastoid air cells are well aerated. IMPRESSION: 1. Areas of prior infarction without acute intracranial abnormality. 2. Age related findings. Reviewed, dictated and finalized at location A.
--- NOTE | ~2022-09-29 | CT_ITS ---
EXAMINATION: CT lumbar spine wo con DATE: 09/29/2022 11:32 INDICATION: Low back pain. Fall. TECHNIQUE: Computed tomography (CT) of the lumbar spine was performed without intravenous contrast. A utomated exposure control and iterative reconstruction technique were employed. The dose-length produ ct was 1024.80 mGy-cm. COMPARISON: PET/CT 09/04/2022 FINDINGS: There are airspace opacities and septal thickening in right lung lower lobe. There are mass es in the adrenal glands measuring up to 3.5 cm on the left. Partially visualized are large masses in volving the iliac bones and right sacral ala. There is a lytic lesion in S1 body. There is 19 degrees dextroscoliosis of lumbar spine. Vertebral body heights are normal. There are bridging endplate oste ophytes at T11-T12 and T12-L1. There is interbody fusion at L1-L2. There is severely decreased disc h eight from L2-L3 through L4-L5 and mildly decreased disc height at L5-S1. There is a transverse fract ure deformity of the sacrum at S3, stable from 09/04/22. The following disc levels are specifically di scussed: L1-L2: There is severe bilateral facet joint osteoarthritis. There is mild bilateral neural foraminal stenosis. There is mild central canal stenosis. L2-L3: The disc is bulging. There is severe right and moderate left facet joint osteoarthritis. There is moderate bilateral neural foraminal stenosis. There is mild central canal stenosis. L3-L4: The disc is bulging. There is severe bilateral facet joint osteoarthritis. There is moderate b ilateral neural foraminal stenosis. There is mild central canal stenosis. There is moderate stenosis of right lateral recess. L4-L5: The disc is bulging. There is severe bilateral facet joint osteoarthritis. There is severe rig ht and moderate left neural foraminal stenosis. There is mild central canal stenosis. L5-S1: The disc is bulging. There is severe bilateral facet joint osteoarthritis. There is moderate r ight and mild left neural foraminal stenosis. There is mild central canal stenosis. IMPRESSION: 1. No acute fracture. 2. Large masses involving the iliac bones and right sacral ala and lytic lesion in S1 body, consisten t with metastatic disease. 3. Severe lumbar spondylosis. 4. Lumbar dextroscoliosis. 5. Airspace opacities and septal thickening in right lung lower lobe, consistent with postobstructive pneumonia and localized pulmonary edema. Reviewed, dictated and finalized at location A. IMPRESSION: 1. No acute fracture. 2. Large masses involving the iliac bones and right sacral ala and lytic lesion in S1 body, consistent with metastatic disease. 3. Severe lumbar spondylosis. 4. Lumbar dextroscoliosis. 5. Airspace opacities and septal thickening in right lung lower lobe, consisten t with postobstructive pneumonia and localized pulmonary edema.
--- NOTE | ~2022-09-29 | XR_ITS ---
XR elbow RT 2V 09/29/2022 13:14 Indication: Right elbow pain after recent fall Procedure: 2 views right elbow Comparison: No prior studies Findings: There is severe osteoarthritis of the right elbow. There are loose bodies adjacent to the j oint. There is chondrocalcinosis. No acute fracture is identified. No foreign bodies. Impression: 1: Severe osteoarthritis of the right elbow with associated loose bodies adjacent to the joint space. Reviewed, dictated and finalized at location B. Impression: 1: Severe osteoarthritis of the right elbow with associated loose bodies adjace nt to the joint space.
--- NOTE | ~2022-09-29 | XR_ITS ---
EXAMINATION: XR chest 1V portable DATE: 09/29/2022 12:21 INDICATION: Wheezing. TECHNIQUE: A single frontal view of the chest was obtained. COMPARISON: Chest single view 09/22/2022, PET/CT 09/04/2022 FINDINGS: There is a right hilar mass. There are airspace and interstitial opacities in right middle lobe and right lower lobe with volume loss. No pleural effusion or pneumothorax. The heart size is no rmal. There is a left subclavian port with tip in superior vena cava. IMPRESSION: 1. Right hilar mass, consistent with malignancy. 2. Airspace and interstitial opacities with volume loss in right middle lobe and right lower lobe, co nsistent with postobstructive pneumonia. Reviewed, dictated and finalized at location A. IMPRESSION: 1. Right hilar mass, consistent with malignancy. 2. Airspace and interstitial opacities with volume loss in right middle lobe an d right lower lobe, consistent with postobstructive pneumonia.
--- NOTE | ~2022-09-29 | XR_ITS ---
EXAMINATION: XR hip BI 2V w AP pelvis DATE: 09/29/2022 11:44 INDICATION: Hip pain after fall TECHNIQUE: AP view the pelvis and two views of each hip are obtained. COMPARISON: 04/15/2022 FINDINGS: There are changes of bilateral total hip arthroplasty. Bone alignment is normal. No fractur e is identified. There are phleboliths of the pelvis. Calcified atherosclerosis is noted. IMPRESSION: 1. No acute osseous abnormality. Reviewed, dictated and finalized at location A.
--- NOTE | 2022-09-29 10:58 | ECG_ITS ---
Measurements Intervals [place] Rate: 78 P: 60 ID: [id number] QRS: -16 QRSD: 114 T: 35 QT: 374 QTc: 428 Interpretive Statements SINUS RHYTHM INCOMPLETE RIGHT BUNDLE BRANCH BLOCK [90+ ms QRS DURATION, TERMINAL R IN V1/V2, 40+ ms S IN I/aVL/V4/V5/V6] COMPARED TO ECG 09/26/2021 08:34:27 INCOMPLETE RIGHT BUNDLE-BRANCH BLOCK NOW PRESENT Electronically Signed On 09-30-2022 11:08:37 CDT by Marcello Kelsey M.D.
[2022-09-29] MEDS: fentaNYL CITRATE INJ (*CRX) 100 MCG/2 ML VIAL 25 MCG IV PUSH ×2 (12:12→14:48)
[2022-09-29] MEDS: SODIUM CHLORIDE 0.9% IV 1,000 ML 999 ML IV CONT ×2 (12:12→14:45)
[2022-09-29 12:20] LABS: Mean Corpuscular HGB Conc 32.1 g/dl (32-36); Mean Corpuscular Hemoglobin 33.3 pg (26-34); Mean Corpuscular Volume 103.8 fl (80-100); Mean Platelet Volume 8.7 fl (7.4-10.4); Platelet Count Result 400 k/mm3 (150-375); Red Blood Count 1.59 M/mm3 (4.6-6.20); Red Cell Distribution Width 15.9 % (11.5-14.5); White Blood Count 27.4 K/mm3 (4.5-10.0)
[2022-09-29] MEDS: IPRATROPIUM BR 0.02% INH SOLN 0.5 MG/2.5 ML VIAL INHALATION (12:23)
[2022-09-29] MEDS: ALBUTEROL SULFATE NEB 2.5 MG/3 ML INH INHALATION (12:23)
[2022-09-29 12:30] LABS: Alanine Aminotransferase 21 U/L (6-50); Albumin Level 3.1 g/dL (3.5-5.1); Alkaline Phosphatase 103 U/L (38-126); Anion Gap 5 mmol/L (8-16); Aspartate Amino Transferase 41 U/L (17-59); Bilirubin,Total 0.2 mg/dL (0.2-1.3); Blood Urea Nitrogen 77 mg/dL (9-20); Calcium 7.7 mg/dL (8.4-10.2); Carbon Dioxide 25 mmol/L (22-30); Chloride 102 mmol/L (98-107); Estimated CRCL calculation 42 ml/min; Estimated Glomerular Filt Rate 53; Glucose 114 mg/dL (65-110); Potassium 4.1 mmol/L (3.4-5.0); Sodium 132 mmol/L (137-145)
--- NOTE | 2022-09-29 12:37 | ED.UPPEXIN ---
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 Patient states he walked to his front door to grab the newspaper from the mailman, pivoted right to grab the door, lost his balance and fell to the ground landing on his right side. He denies hitting his head or losing consciousness. States he normally ambulates with a had the walker with him, however turned to the side and was not actively using a walker when he fell. He missed his appointment for his first dose of radiation today to come to the ED for evaluation. He is scheduled for his first dose of chemotherapy tomorrow as well as a EGD to search for metastases. States he felt fine prior to the fall. He denies chest pain, focal numbness or weakness, shortness of breath, fever, abdominal pain, nausea or vomiting. States his low back pain is unchanged from his baseline. <YESSI Hearn Last Filed: 09/29/22 19:26> Related Data Home Medications: Home Medications Medication Instructions Recorded Confirmed cyanocobalamin (vitamin B-12) 1,000 mcg PO DAILY 07/21/22 09/23/22 1,000 mcg tablet ibuprofen 800 mg tablet 800 mg PO BID PRN Pain 07/21/22 09/23/22 <YESSI Hearn Last Filed: 09/29/22 19:26> Allergies/Adverse Reactions: Allergies Allergy/AdvReac Type Severity Reaction Status Date / Time No Known Allergies Allergy Verified 09/29/22 10:15 <YESSI Hearn Last Filed: 09/29/22 19:26> Review of Systems Review of Systems: CONSTITUTIONAL: Denies fever, chills EYES: Denies visual changes, redness, or discharge. ENT: Denies rhinorrhea, congestion, sore throat, or otalgia. CARDIOVASCULAR: Denies chest pain, palpitations, or edema. RESPIRATORY: Denies cough or dyspnea. GASTROINTESTINAL: Denies abdominal pain, nausea, vomiting, or diarrhea. GENITOURINARY: Denies dysuria or hematuria. SKIN: Denies rash or itching. MUSCULOSKELETAL: See HPI NEUROLOGIC: Denies headache, numbness, dizziness, or weakness. PSYCHIATRIC: Denies anxiety or depression. <Asia Angela PA-C - Last Filed: 09/29/22 19:26> [facility] Past Medical History Medical History: Medical History B12 deficiency Benign prostatic hyperplasia Bursitis of right elbow FHx: prostate cancer Low back pain Lung nodule, multiple Mixed hyperlipidemia Nicotine abuse <Asia Angela PA-C - Last Filed: 09/29/22 19:26> Surgical History Surgical History: Surgical History H/O colonoscopy History of excision of mass excision 3.5 cm subcutaneous mass presternal chest w/2mm margins, 3.9 cm excision. 8.6 cm layered closure 07/30/22 <Asia Angela PA-C - Last Filed: 09/29/22 19:26> Family History Family History: Family History Mother Family history of malignant neoplasm of stomach Father Malignant neoplasm of prostate Family history of malignant neoplasm of bone <Asia Angela PA-C - Last Filed: 09/29/22 19:26> Social History Social History: Social History Smoking packs per day: 0.5 Smoking cigarettes per day: 10.0 Years smoked: 60 Smoking pack-years: 30.00 Smoking status: Current every day smoker Second hand tobacco smoke exposure: No
[2022-09-29 12:41] LABS: Hematocrit 16.5 % (42.0-52.0); Hemoglobin 5.3 g/dL (14.0-18.0)
[2022-09-29 12:43] LABS: Anisocytosis 1+ (NORMAL); Hypochromasia 1+ (NORMAL); Lymphocytes Absolute Manual 2.19 K/mm3 (1.1-4.5); Lymphocytes Percent Manual 8 % (18-44); Macrocytosis 1+ (NORMAL); Monocytes Absolute Manual 1.64 K/mm3 (0.1-0.90); Monocytes Percent Manual 6 % (3-9); Myelocytes Percent 1 %; Neutrophils Percent Manual 85 % (46-73); Schistocytes None Seen (NORMAL); Total Cells Counted 100
[2022-09-29] MEDS: AZITHROMYCIN 500 MG/NS 250 ML 500 MG/250 ML BAG 250 MG IVPB (13:49)
[2022-09-29 13:55] LABS: Appearance Urine Clear (Clear); Bilirubin Urine Negative (Negative); Blood Urine Negative (Negative); Color Urine Yellow (Yellow); Glucose Urine UA Negative (Negative); Ketones Urine Negative (Negative); Leukocyte Esterase Ur Negative LEU/UL (Negative); Nitrate Urine Negative (Negative); Protein Urine Negative (Negative); Specific Grav Ur 1.018 (1.001-1.035); Urobilinogen Urine 0.2 mg/dL (<2.0); pH Urine 5.5 (5.0-9.0)
[2022-09-29 14:02] LABS: Add Urine Microscopic? NO
--- NOTE | 2022-09-29 15:15 | ADMIMU ---
This patient, Ricardo Lemos, was admitted to IMU status, and placed in Intensive Care Unit-8. Patient/family oriented to hospital policies and general routines including ID bracelet, bed and alarms, visiting hours, pain management, procedures, bathroom and other care routines, personal items, smoking policy, room service/diet, and visiting hours. Valuables list has been completed. Information on how to activate the Rapid Response Team has been discussed. Patient/Family are encouraged to report perceived risks to care and to ask questions if they do not understand what they are told or what they should do.
[2022-09-29] MEDS: HYDROcodone/acetaminophen (*CRX) 5-325 MG TABLET 1 TAB PO (15:44)
[2022-09-29] MEDS: SODIUM CHLORIDE 0.9% IV 250 ML 30 ML IV CONT (15:45)
--- NOTE | 2022-09-29 19:02 | PDONCCN ---
HPI - Date of Consult Date/Time: 09/29/22 19:02 Requesting Physician: Reji Cervantes MD Primary Care Provider: Luanne Joshi APRN - Consult Narrative Reason for consult: Metastatic cancer Narrative: Ricardo Lemos is a 76 year old male with recently diagnosed metastatic adenocarcinoma status post right breast mass biopsy done on August 21, 2022. PET scan showed 7.3 x 6.5 cm mass in the right lower lobe of the lung with widespread metastasis involving bilateral adrenal gland, left kidney and numerous bones along with lymph node muscles and subcutaneous fat throughout the neck chest abdomen and pelvis. KRAS mutation testing was positive likely high risk non-small cell lung cancer. There was also concern of gastrointestinal primary due to some of the stain suggestive of GI origin. Patient was referred for GI consultation and was supposed to have endoscopy by Dr. Dodge tomorrow. He was also supposed to start chemotherapy on ThursdayOctober 01. Patient came into the hospital with right shoulder pain status post fall when he got dizzy and lightheaded in the home. Labs showed hemoglobin of 5.3. Head CT showed no evidence of malignancy. Lumbar spine CT showed large masses involving the iliac bone and right sacral area and S1 body. Hemoccult stool came back positive. Review of Systems - Review of Systems All systems reviewed & are unremarkable except as noted in [facility] and [facility] Medical History: Medical History (Last Reviewed 09/29/22 @ 13:04 by Asia Angela PA-C) B12 deficiency Benign prostatic hyperplasia Bursitis of right elbow FHx: prostate cancer Low back pain Lung nodule, multiple Mixed hyperlipidemia Nicotine abuse Surgical History: Surgical History (Last Reviewed 09/29/22 @ 13:04 by Asia Angela PA-C) H/O colonoscopy History of excision of mass excision 3.5 cm subcutaneous mass presternal chest w/2mm margins, 3.9 cm excision. 8.6 cm layered closure 07/30/22 Family History: Family History (Last Reviewed 09/29/22 @ 15:29 by Vijay Jane, [place]) Mother Family history of malignant neoplasm of stomach Father Malignant neoplasm of prostate Family history of malignant neoplasm of bone - Social History Social History: Social History (Last Reviewed 09/29/22 @ 13:04 by Asia Angela PA-C) Alcohol Use: Alcohol intake: never Drinks per week: 1 Substance Use: Substance use: never Substance use type: does not use Others: Spiritual care concerns: No Living Arrangements: Living arrangements: with family Smoking Status: Smoking status: Current every day smoker Second hand tobacco smoke exposure: No Smoking Pack-years: Smoking packs per day: 0.5 Smoking cigarettes per day: 10.0 Years smoked: 60 Smoking pack-years: 30.00 Social Determinants of Health: Has the Lack of Transportation Kept You From Medical Appointments or From Getting Medications?: No Within the Past 12 Months, Were You Worried Whether Your Food Would Run Out Before You Got Money to Buy More?: Never True What is Your Housing Situation Today?: I Have Housing Are You Worried That in the Next 2 Months, You May Not Have Your Own Housing to Live In?: No Do You Have Trouble Paying Your Heating Or Electricity Bill?: No Do You Have Trouble Paying For Medicines?: No Are You Currently Unemployed and Looking for Work?: No Highest Level of Education Completed: High School Diploma/GED Do You Have Trouble With Childcare or the Care of a Family Member?: No Exam - Vital Signs Vital Signs - 24 hr 09/29/22 10:08 09/29/22 10:52 09/29/22 12:18 Temperature 36.4 C Pulse Rate 95 90 Respiratory Rate 20 20 18 Blood Pressure 102/57 L 96/52 L Pulse Oximetry 93 91 Oxygen Delivery Room Air Oxygen Flow Rate 09/29/22 13:55 09/29/22 13:55 09/29/22 15:04 Temperature Pulse Rate 70 Respiratory Rate 18 Blo
--- NOTE | 2022-09-29 19:33 | PM.IMHP ---
H&P: HPI History of Present Illness Date/Time: 09/29/22 19:33 Chief Complaint: Fall with right shoulder pain Narrative: This is a 76-year-old male patient who was recently diagnosed with metastatic cancer to the bone iand the lungs. The patient stated he was recently told about his metastatic cancer of unknown source and he stated he was given the choice of getting treatment are going on hospice. The patient decided that he wanted to undergo treatment. The patient stated he has not yet received any treatment,he does have a Port-A-Cath. He came to theer for evaluation for right shoulder pain, right elbow pain, and low back pain since a fall that occurred earlier this morning.? Patient states he walked to his front door to grab the newspaper from the mailman, pivoted right to grab the door, lost his balance and fell to the ground landing on his right side.? He denies hitting his head or losing consciousness.? States he normally ambulates with a had the walker with him, however turned to the side and was not actively using a walker when he fell.? He missed his appointment for his first dose of radiation today to come to the ED for evaluation.? He is scheduled for his first dose of chemotherapy tomorrow as well as a EGD to search for metastases.? States he felt fine prior to the fall.? He denies chest pain, focal numbness or weakness, shortness of breath, fever, abdominal pain, nausea or vomiting.? States his low back pain is unchanged from his baseline. The patient is currently on oxygen at 2 L per nasal cannula and does not typically wear any oxygen. His white count was noted to be 27.4 and repeat was 22.0. His H&H was 5.3 and 18.5 and is now 7.2 in 22.6. The patient was given IV fluids, albuterol treatment Atrovent treatment, fentanyl, Rocephin, azithromycin, and [place]. GI and Oncology have been consulted. Head CT. Areas of prior infarction without acute intracranial abnormality. 2. Age related findings. Elbow x ray : Severe osteoarthritis of the right elbow with associated loose bodies adjacent to the joint space. Chest xray 1. Right hilar mass, consistent with malignancy. 2. Airspace and interstitial opacities with volume loss in right middle lobe and right lower lobe, consistent with postobstructive pneumonia. Shoulder xray . Lytic lesion in proximal right humerus, consistent metastatic disease. 2. Right hilar mass, consistent with malignancy. 3. Polyarticular osteoarthritis. Loose bodies in right glenohumeral joint. Hip and pelvis xray . No acute osseous abnormality. Lumbar spine x ray . No acute fracture. 2. Large masses involving the iliac bones and right sacral ala and lytic lesion in S1 body, consistent with metastatic disease. 3. Severe lumbar spondylosis. 4. Lumbar dextroscoliosis. 5. Airspace opacities and septal thickening in right lung lower lobe, consistent with postobstructive pneumonia and localized pulmonary edema. The patient is being admitted to inpatient status on the date of service of 09/29/22 Review of Systems Review of Systems: All systems reviewed & are unremarkable except as noted in HPI and below Constitutional: Constitutional: Reports as per HPI and Reports no additional constitutional complaints Eyes: Eyes: Reports as per HPI and Reports no additional eye complaints ENT: Reports system reviewed and no additional complaints, except as documented and Reports Normal hearing present Cardiovascular: Cardiovascular: Reports no additional cardiovascular complaints Respiratory: Respiratory: Reports no additional respiratory complaints and Reports no additional respiratory complaints Gastrointestinal: Gastrointestinal: Reports as per HPI and Reports no additional gastrointestinal complaints Musculoskeletal: Musculoskeletal: Reports no additional musculoskeletal complaints Integumentary/Breasts: Skin/Breast: Reports system reviewed and no additional complaints, except as docu and Reports as per HPI Neurologic: Reports syst
[2022-09-29] MEDS: fentaNYL CITRATE INJ (*CRX) 100 MCG/2 ML VIAL 50 MCG IV PUSH (22:00)
[2022-09-29 23:42] LABS: Hematocrit 22.6 % (42.0-52.0); Hemoglobin 7.2 g/dL (14.0-18.0); Mean Corpuscular HGB Conc 31.9 g/dl (32-36); Mean Corpuscular Hemoglobin 31.2 pg (26-34); Mean Corpuscular Volume 97.8 fl (80-100); Mean Platelet Volume 8.7 fl (7.4-10.4); Platelet Count Result 357 k/mm3 (150-375); Red Blood Count 2.31 M/mm3 (4.6-6.20)
[2022-09-30] VITALS (85 sets, daily range): BP systolic 100–142; BP diastolic 51–70; PULSE 74–103; RESP 14–20; TEMP 36.6–37.1; O2SAT 90–100
[2022-09-30] MEDS: IPRATROPIUM BR 0.02% INH SOLN 0.5 MG/2.5 ML VIAL INHALATION ×4 (03:06→20:06)
[2022-09-30] MEDS: ALBUTEROL SULFATE NEB 2.5 MG/3 ML INH INHALATION ×4 (03:07→20:05)
[2022-09-30 04:28] LABS: Basophils Absolute Auto 0.1 K/mm3 (0.0-0.1); Basophils Percent Auto 0.3 % (0.2-1.2); Hematocrit 22.8 % (42.0-52.0); Hemoglobin 7.3 g/dL (14.0-18.0); Immature Granulocyte Absolute 1.11 K/mm3 (0.00-0.031); Lymphocytes Absolute Auto 1.87 K/mm3 (0.9-3.2); Lymphocytes Percent Auto 8.3 % (18.3-44.2); Mean Corpuscular Hemoglobin 31.5 pg (26-34); Mean Corpuscular Volume 98.3 fl (80-100); Mean Platelet Volume 8.5 fl (7.4-10.4); Monocytes Absolute Auto 3.1 K/mm3 (0.1-0.6); Monocytes Percent Auto 13.9 % (2.6-8.5); Neutrophils Absolute Auto 16.3 K/mm3 (1.3-6.7); Neutrophils Percent Auto 72.5 % (45.5-73.1); Nucleated Red Blood Cells Absolute Auto 0.1 K/mm3 (0.0-0.012); Nucleated Red Blood Cells Perc 0.3 % (0.0-0.2); Platelet Count Result 340 k/mm3 (150-375); Red Blood Count 2.32 M/mm3 (4.6-6.20); Red Cell Distribution Width 17.6 % (11.5-14.5); White Blood Count 22.4 K/mm3 (4.5-10.0)
[2022-09-30] MEDS: fentaNYL CITRATE INJ (*CRX) 100 MCG/2 ML VIAL 50 MCG IV PUSH ×6 (04:36→17:50)
[2022-09-30 04:37] LABS: Magnesium 2.5 mg/dL (1.6-2.3)
[2022-09-30] MEDS: SODIUM CHLORIDE 0.9% IV 1,000 ML 100 ML IV CONT ×2 (04:37→15:58)
[2022-09-30 04:44] LABS: Lactate Dehydrogenase 953 U/L (120-246)
--- NOTE | 2022-09-30 08:42 | PM.IMPN ---
Progress Note: A&P Assessment and Plan (1) Anemia: Qualifiers: Anemia type: unspecified type Qualified Code(s): D64.9 - Anemia, unspecified Code(s): D64.9 - Anemia, unspecified Status: Acute Assessment and Plan: Patient presents with weakness and fall found to have a hemoglobin of 5.3. He was guaiac positive in the ER. Ibuprofen is listed as needed as a home medication so consider gastritis/PUD. There is also concerned that he may have a primary GI malignancy as mentioned below. Patient was transfused and repeat hgb in the 7 range. GI consulted. Patient is currently NPO with plans for endoscopy this morning. Follow-up on results. Will check serial H&H and transfuse as necessary. (2) Pneumonia: Qualifiers: Laterality: right Lung location: middle lobe of lung Pneumonia type: due to unspecified organism Qualified Code(s): J18.9 - Pneumonia, unspecified organism Code(s): J18.9 - Pneumonia, unspecified organism Status: Acute Assessment and Plan: CXR showing airspace and interstitial opacities with volume loss in the right middle lobe and right lower lobe consistent with postobstructive pneumonia from a right hilar mass. Patient is minimally symptomatic. These findings were noted by chest x-ray on 09/22/2022. Blood cultures collected and are pending. No fevers but patient's white count was 27K. patient has been started on azithromycin Rocephin. White count trending downward. will continue the same for now. Continue to monitor. Wean o2 as toelrated. (3) GI bleed: Code(s): K92.2 - Gastrointestinal hemorrhage, unspecified Status: Acute Assessment and Plan: As above. BUN 77 consistent with GI bleed. Add protonix (4) Fall: Qualifiers: Encounter type: initial encounter Qualified Code(s): W19.XXXA - Unspecified fall, initial encounter Code(s): W19.XXXA - Unspecified fall, initial encounter Status: Acute Assessment and Plan: Patient fell probably related to weakness from profound anemia. No head injury or LOC. Rt shoulder xray showing right proximal humerus lytic lesion and polyarticular OA. No fracture. He has had bilateral THR and no acute findings by xray. Will need PT/OT when able. (5) Metastatic malignant neoplasm of unknown primary site: Code(s): C79.9 - Secondary malignant neoplasm of unspecified site; C80.1 - Malignant (primary) neoplasm, unspecified Status: Acute Assessment and Plan: Patient presented with a chest wall mass initially status post resection with pathology showing carcinoma. Was felt that this was compatible with lung primary. Lumbar MRI in August showed large mass lesions bilaterally in the pelvis possibly arising from the bilateral iliac bones. PET scan in August showed widespread metastatic disease involving the bilateral adrenal glands, left kidney, numerous bones, lymph nodes, muscle, subcutaneous fat throughout the neck, chest, abdomen and pelvis. It was felt that the most likely primary lesion was a 7.3 cm right lower lobe lung mass. There is also concern for possible GI primary. Port-A-Cath has been placed. Plan is to start chemotherapy. He was also referred for palliative radiation to right shoulder region and bilateral posterior hip lower and back region. Oncology has been consulted here. Imaging here is consistent with prior imaging. he has not started treatment yet. Hospice should be considered. Subjective Date/time seen: 09/30/22 08:42 Interval history: 76yo male with recently diagnosed metastatic cancer here for a fall with right shoulder pain. Patient complaining of right buttock and right shoulder pain. Complains of pain in current position but states too painful to move. No head injury or LOC with the fall. Patient has not noticed any obvious blood in the stool. He has a slight, chronic cough that is nonproductive. no CP or SOB. no abd pain. He does not w
--- NOTE | 2022-09-30 10:54 | WPDGICN ---
Assessment and Plan Assessment and plan (1) Metastatic malignant neoplasm of unknown primary site: Code(s): C79.9 - Secondary malignant neoplasm of unspecified site; C80.1 - Malignant (primary) neoplasm, unspecified Status: Acute Assessment and Plan: most likely source is lung but oncology recommended also GI evaluation with scopes, will proceed tomorrow prognosis is guarded, son at bedside and would like to discuss with primary/oncology team expectations/treatment and even consideration of hospice (2) Symptomatic anemia: Code(s): D64.9 - Anemia, unspecified Status: Acute Assessment and Plan: this is probably from advanced metastatic cancer but will assess with egd and colonoscopy tomorrow patient and son ok to proceed (3) Fall: Qualifiers: Encounter type: initial encounter Qualified Code(s): W19.XXXA - Unspecified fall, initial encounter Code(s): W19.XXXA - Unspecified fall, initial encounter Status: Acute (4) Pneumonia: Qualifiers: Laterality: right Lung location: middle lobe of lung Pneumonia type: due to unspecified organism Qualified Code(s): J18.9 - Pneumonia, unspecified organism Code(s): J18.9 - Pneumonia, unspecified organism Status: Acute Assessment and Plan: on abx GI Consult Note Consult date/time: 09/30/22 10:54 Reason for consult: metastatic cancer, symptomatic anemia HPI: Ricardo Lemos is a 76 year old male with recently diagnosed metastatic adenocarcinoma status post right breast mass biopsy done on August 21, 2022- primary probably lung but also concern of gastrointestinal primary due to some of the stain suggestive of GI origin.?PET scan showed 7.3 x 6.5 cm mass in the right lower lobe of the lung with widespread metastasis involving bilateral adrenal gland, left kidney and numerous bones along with lymph node muscles and subcutaneous fat throughout the neck chest abdomen and pelvis.?He was supposed to actually come today as outpatient for endoscopic evaluation and also start his chemo radiation therapy tomorrow byt Dr Comer. He has been dealing with diffuse pain and came to the hospital after he fell when he got dizzy and lightheaded in the home.? Labs showed hemoglobin of 5.3. Admitted to ICU. He is hemodynamically stable, denies overt gib, no dysphagia. Last colonoscopy about 11 years ago (he was supposed to have one last year but canceled by anesthesia because heart issues). CXR reviewed, Right hilar mass, consistent with malignancy. 2. Airspace and interstitial opacities with volume loss in right middle lobe and right lower lobe, consistent with postobstructive pneumonia. Started on abx. Review of Systems Constitutional: Constitutional: Reports body ache(s) and Reports lethargy Eyes: Eyes: Denies blurry vision ENT: Reports Normal hearing present Cardiovascular: Cardiovascular: Reports lightheadedness Respiratory: Respiratory: Reports dyspnea on exertion Gastrointestinal: Gastrointestinal: Denies abdominal pain Genitourinary: Genitourinary: Denies dysuria Musculoskeletal: Musculoskeletal: Reports myalgias Integumentary/Breasts: Skin/Breast: Denies rash Neurologic: Denies confusion Psychiatric: Psychiatric: Denies behavioral changes [facility] Past Medical History Medical History (Updated 09/30/22 @ 10:58 by Tono Tavera MD) B12 deficiency Benign prostatic hyperplasia Bursitis of right elbow FHx: prostate cancer Low back pain Lung nodule, multiple Metastatic malignant neoplasm of unknown primary site Mixed hyperlipidemia Nicotine abuse Port-A-Cath in place Symptomatic anemia Surgical History Surgical History H/O colonoscopy History of excision of mass excision 3.5 cm subcutaneous mass presternal chest w/2mm margins, 3.9 cm excision. 8.6 cm layered closure 07/30/22 Family History Family History (Reviewed 09/30/22 @
[2022-09-30] MEDS: ACETAMINOPHEN 325 MG TABLET 650 MG PO ×2 (11:13→15:56)
[2022-09-30 12:29] LABS: Hemoglobin 6.9 g/dL (14.0-18.0)
[2022-09-30] MEDS: AZITHROMYCIN 500 MG/NS 250 ML 500 MG/250 ML BAG 250 MG IVPB ×2 (13:09→14:54)
[2022-09-30] MEDS: SODIUM CHLORIDE 0.9% IV 250 ML 30 ML IV CONT (15:58)
[2022-09-30] MEDS: FUROSEMIDE INJ 40 MG/4 ML VIAL 20 MG IV PUSH (16:01)
[2022-09-30] MEDS: PANTOPRAZOLE SODIUM IV 40 MG VIAL IV PUSH ×2 (16:01→22:28)
[2022-09-30] MEDS: BISACODYL 5 MG TABLET EC 20 MG PO (17:44)
[2022-09-30] MEDS: polyethylene glycoL 3350 238 GM BOTTLE PO (17:46)
[2022-09-30] MEDS: HYDROmorphone HCL INJ (*CRX) 1 MG/ML SYR 0.5 MG IV PUSH (19:35)
[2022-09-30 19:39] LABS: Hematocrit 29.2 % (42.0-52.0); Hemoglobin 9.1 g/dL (14.0-18.0)
[2022-10-01] VITALS (63 sets, daily range): BP systolic 98–129; BP diastolic 49–70; PULSE 76–155; RESP 13–27; TEMP 36.6–37.2; O2SAT 89–99
[2022-10-01] MEDS: HYDROmorphone HCL INJ (*CRX) 1 MG/ML SYR 0.5 MG IV PUSH ×2 (00:19→09:05)
[2022-10-01] MEDS: MAGNESIUM CITRATE 300 ML BTL PO (01:16)
[2022-10-01 01:36] LABS: Hematocrit 29.7 % (42.0-52.0); Hemoglobin 9.3 g/dL (14.0-18.0)
[2022-10-01] MEDS: SODIUM CHLORIDE 0.9% IV 1,000 ML 100 ML IV CONT (02:11)
[2022-10-01] MEDS: IPRATROPIUM BR 0.02% INH SOLN 0.5 MG/2.5 ML VIAL INHALATION ×4 (02:40→20:52)
[2022-10-01] MEDS: ALBUTEROL SULFATE NEB 2.5 MG/3 ML INH INHALATION ×4 (02:41→20:52)
[2022-10-01 04:42] LABS: Basophils Absolute Auto 0.1 K/mm3 (0.0-0.1); Basophils Percent Auto 0.3 % (0.2-1.2); Hemoglobin 9.1 g/dL (14.0-18.0); Immature Granulocyte Absolute 1.02 K/mm3 (0.00-0.031); Immature Granulocyte Percent A 4.7 % (0-0.5); Lymphocytes Absolute Auto 1.11 K/mm3 (0.9-3.2); Lymphocytes Percent Auto 5.1 % (18.3-44.2); Mean Corpuscular HGB Conc 31.4 g/dl (32-36); Mean Corpuscular Hemoglobin 30.7 pg (26-34); Mean Platelet Volume 8.8 fl (7.4-10.4); Monocytes Absolute Auto 3.2 K/mm3 (0.1-0.6); Monocytes Percent Auto 14.5 % (2.6-8.5); Neutrophils Absolute Auto 16.4 K/mm3 (1.3-6.7); Neutrophils Percent Auto 75.4 % (45.5-73.1); Nucleated Red Blood Cells Perc 0.2 % (0.0-0.2); Platelet Count Result 377 k/mm3 (150-375); Red Blood Count 2.96 M/mm3 (4.6-6.20); Red Cell Distribution Width 18.6 % (11.5-14.5); White Blood Count 21.8 K/mm3 (4.5-10.0)
[2022-10-01 05:07] LABS: Albumin Level 2.9 g/dL (3.5-5.1); Anion Gap 2 mmol/L (8-16); Blood Urea Nitrogen 25 mg/dL (9-20); Calcium 7.5 mg/dL (8.4-10.2); Carbon Dioxide 27 mmol/L (22-30); Chloride 106 mmol/L (98-107); Estimated CRCL calculation 86 ml/min; Estimated Glomerular Filt Rate > 60; Glucose 124 mg/dL (65-110); Phosphorus 3.2 mg/dL (2.5-4.5); Potassium 3.4 mmol/L (3.4-5.0); Sodium 135 mmol/L (137-145)
[2022-10-01 05:09] LABS: Platelet Estimate Adequate (Adequate)
[2022-10-01 05:10] LABS: Anisocytosis 2+ (NORMAL); Poikilocytosis 1+ (NORMAL); Polychromasia 1+ (NORMAL); Schistocytes None Seen (NORMAL)
--- NOTE | 2022-10-01 06:45 | PC.NURSE ---
RN updated GI Lab patient tolerated prep but still having dark black but all liquid stools. GI nurse states she will update Dar and plan for patient's procedure around 1130 am.
[2022-10-01] MEDS: LACTATED RINGERS 1,000 ML 100 ML IV CONT (09:21)
--- NOTE | 2022-10-01 10:02 | SUR.OPER ---
EGD: [id number] COLON: Start 1002
[2022-10-01] MEDS: HYDROcodone/acetaminophen (*CRX) 5-325 MG TABLET 1 TAB PO (11:49)
[2022-10-01] MEDS: TAMSULOSIN HCL 0.4 MG CAPSULE PO (11:49)
[2022-10-01] MEDS: CYANOCOBALAMIN 1,000 MCG TABLET 1000 MCG PO (11:49)
[2022-10-01] MEDS: cefTRIAXone 2 GM/NS 100 ML 2 GM/100 ML BAG IVPB (11:50)
--- NOTE | 2022-10-01 12:14 | PM.IMPN ---
Progress Note: A&P Assessment and Plan (1) Anemia: Qualifiers: Anemia type: unspecified type Qualified Code(s): D64.9 - Anemia, unspecified Code(s): D64.9 - Anemia, unspecified Status: Acute Assessment and Plan: Patient presents with weakness and fall found to have a hemoglobin of 5.3. He was guaiac positive in the ER. Ibuprofen is listed as needed as a home medication so consider gastritis/PUD. There is also concerned that he may have a primary GI malignancy as mentioned below. Patient was transfused and repeat hgb in the 7 range. GI consulted. Patient is currently NPO with plans for endoscopy this morning. Follow-up on results. Will check serial H&H and transfuse as necessary. (2) Pneumonia: Qualifiers: Laterality: right Lung location: middle lobe of lung Pneumonia type: due to unspecified organism Qualified Code(s): J18.9 - Pneumonia, unspecified organism Code(s): J18.9 - Pneumonia, unspecified organism Status: Acute Assessment and Plan: CXR showing airspace and interstitial opacities with volume loss in the right middle lobe and right lower lobe consistent with postobstructive pneumonia from a right hilar mass. Patient is minimally symptomatic. These findings were noted by chest x-ray on 09/22/2022. Blood cultures collected and are pending. No fevers but patient's white count was 27K. patient has been started on azithromycin Rocephin. White count trending downward. will continue the same for now. Continue to monitor. Wean o2 as toelrated. (3) GI bleed: Code(s): K92.2 - Gastrointestinal hemorrhage, unspecified Status: Acute Assessment and Plan: As above. BUN 77 consistent with GI bleed. Add protonix (4) Fall: Qualifiers: Encounter type: initial encounter Qualified Code(s): W19.XXXA - Unspecified fall, initial encounter Code(s): W19.XXXA - Unspecified fall, initial encounter Status: Acute Assessment and Plan: Patient fell probably related to weakness from profound anemia. No head injury or LOC. Rt shoulder xray showing right proximal humerus lytic lesion and polyarticular OA. No fracture. He has had bilateral THR and no acute findings by xray. Will need PT/OT when able. (5) Metastatic malignant neoplasm of unknown primary site: Code(s): C79.9 - Secondary malignant neoplasm of unspecified site; C80.1 - Malignant (primary) neoplasm, unspecified Status: Acute Assessment and Plan: Patient presented with a chest wall mass initially status post resection with pathology showing carcinoma. Was felt that this was compatible with lung primary. Lumbar MRI in August showed large mass lesions bilaterally in the pelvis possibly arising from the bilateral iliac bones. PET scan in August showed widespread metastatic disease involving the bilateral adrenal glands, left kidney, numerous bones, lymph nodes, muscle, subcutaneous fat throughout the neck, chest, abdomen and pelvis. It was felt that the most likely primary lesion was a 7.3 cm right lower lobe lung mass. There is also concern for possible GI primary. Port-A-Cath has been placed. Plan is to start chemotherapy. He was also referred for palliative radiation to right shoulder region and bilateral posterior hip lower and back region. Oncology has been consulted here. Imaging here is consistent with prior imaging. he has not started treatment yet. Hospice should be considered. Subjective Date/time seen: 10/01/22 12:14 Interval history: Still having pain and right shoulder. Respiratory status okay. Exam Narrative: AF 98.2 112/54 92 20 94% HFNC Gen - NARD lying almost flat in bed Chest - clear anteriorly and in the flanks. nml RR CV - RRR S1/S2. Tele showing no significant dysrhythmias Abd - Soft, Positive BS, no HSM Ext - No pedal edema, 2+ Rt, trace-1+ left DP. Right shoulder exam limited due to pain. Psych - Nml mood and affect
--- NOTE | 2022-10-01 17:22 | ECG_ITS ---
Measurements Intervals [place] Rate: 151 P: 173 NM: 103 QRS: -69 QRSD: 137 T: 21 QT: 315 QTc: 501 Interpretive Statements ECTOPIC ATRIAL TACHYCARDIA WITH SHORT NM INTERVAL, POSSIBLE ATRIAL FLUTTER RIGHT BUNDLE BRANCH BLOCK [120+ ms QRS DURATION, UPRIGHT V1, 40+ ms S IN I/aVL/V4/V5/V6] LEFT ANTERIOR FASCICULAR BLOCK [QRS AXIS <= -45, QR IN I, RS IN II] INFERIOR MYOCARDIAL INFARCTION [40+ ms Q WAVE AND/OR ST/T ABNORMALITY IN II/aVF], OF INDETERMINATE AGE WARNING: DATA QUALITY MAY AFFECT INTERPRETATION COMPARED TO ECG 09/29/2022 12:32:46 RIGHT BUNDLE-BRANCH BLOCK NOW PRESENT LEFT ANTERIOR FASCICULAR BLOCK NOW PRESENT MYOCARDIAL INFARCT FINDING NOW PRESENT Electronically Signed On 10-02-2022 10:57:05 CDT by Marcello Kelsey M.D.
[2022-10-01] MEDS: ATORVASTATIN 20 MG TABLET PO (17:50)
[2022-10-01] MEDS: AZITHROMYCIN 500 MG/NS 250 ML 500 MG/250 ML BAG 250 MG IVPB (17:50)
[2022-10-01] MEDS: METOPROLOL TARTRATE INJ 5 MG/5 ML VIAL IV PUSH (18:01)
[2022-10-01 18:04] LABS: Hematocrit 29.9 % (42.0-52.0); Hemoglobin 9.4 g/dL (14.0-18.0)
--- NOTE | 2022-10-01 19:32 | WPDONCPN ---
Progress Note: A/P - Additional Plan Metastatic non-small cell lung cancer. EGD and colonoscopy finding noted. I had a long discussion with patient and the family regarding prognosis of stage IV lung cancer and treatment involved. I have answered all the questions to the satisfaction. We discussed treatment with chemotherapy versus hospice and comfort care. He will call us after the discharge with his decision. Macrocytic anemia. Colonoscopy showed colonic ulcer with diverticulosis playing a role in the anemia. EGD showed hiatal hernia. There is no evidence of malignancy. Hemoglobin has improved to 9.4 after blood transfusion. Clinically is feeling better. Pneumonia. Patient is clinically improving on antibiotic. We will follow-up in the office. - Time Spent With Patient Total time spent is greater than 50% in coordination of care (as documented) at patient's floor/unit and/or counseling patient: 25 - 35 minutes Subjective Interval history: Metastatic non-small cell lung cancer Review of Systems - Review of Systems Patient is much more awake and alert today. Bone pain is under better control. He has some tiredness and fatigue without any other new complaints. - Neurologic Reports system reviewed and no additional complaints, except as documented, Reports hearing normal, Denies behavioral changes, Denies confusion Exam Vital signs: Temp Pulse Resp BP Pulse Ox O2 Del Method O2 Flow Rate 37.2 C 76 20 99/66 L 93 Nasal Cannula 2 10/01/22 18:00 10/01/22 18:01 10/01/22 18:01 10/01/22 18:01 10/01/22 18:01 10/01/22 16:00 10/01/22 16:00 FiO2 28 10/01/22 13:59 Narrative: Lungs are clear to auscultation bilaterally Cardiovascular regular rate rhythm no murmurs Abdomen soft nontender nondistended Bowel sounds are positive PN: Objective Data - Labs CBC & Chem 7: 10/01/22 18:00 10/01/22 04:23 Labs: Laboratory Results - last 24 hr 09/30/22 10/01/22 10/01/22 19:32 01:19 04:23 WBC 21.8 H RBC 2.96 L Hgb 9.1 L 9.3 L 9.1 L Hct 29.2 L 29.7 L 29.0 L MCV 98.0 MCH 30.7 MCHC 31.4 L RDW 18.6 H Plt Count 377 H MPV 8.8 Immature Gran % (Auto) 4.7 H Neut % (Auto) 75.4 H Lymph % (Auto) 5.1 L Mcdonald % (Auto) 14.5 H Eos % (Auto) 0.0 Baso % (Auto) 0.3 Lymph # (Auto) 1.11 Mcdonald # (Auto) 3.2 H Eos # (Auto) 0.0 Baso # (Auto) 0.1 Abs Immat Gran (auto) 1.02 H Absolute Neuts (auto) 16.4 H Absolute Nucleated RBC 0.0 Nucleated RBC % 0.2 Platelet Estimate Adequate Polychromasia 1+ Poikilocytosis 1+ Anisocytosis 2+ Schistocytes None seen Sodium 135 L Potassium 3.4 Chloride 106 Carbon Dioxide 27 Anion Gap 2 L BUN 25 H D Creatinine 0.60 L Estim Creat Clear Calc 86 Estimated GFR > 60 Glucose 124 H Calcium 7.5 L Phosphorus 3.2 Albumin 2.9 L 10/01/22 18:00 WBC RBC Hgb 9.4 L Hct 29.9 L MCV MCH MCHC RDW Plt Count MPV Immature Gran % (Auto) Neut % (Auto) Lymph % (Auto) Mcdonald % (Auto) Eos % (Auto) Baso % (Auto) Lymph # (Auto) Mcdonald # (Auto) Eos # (Auto) Baso # (Auto) Abs Immat Gran (auto) Absolute Neuts (auto) Absolute Nucleated RBC Nucleated RBC % Platelet Estimate Polychromasia Poikilocytosis Anisocytosis Schistocytes Sodium Potassium Chloride Carbon Dioxide Anion Gap BUN Creatinine Estim Creat Clear Calc Estimated GFR Glucose Calcium Phosphorus Albumin
[2022-10-02] VITALS (18 sets, daily range): BP systolic 97–130; BP diastolic 51–82; PULSE 56–106; RESP 15–20; TEMP 36.5–38.2; O2SAT 88–97
[2022-10-02] MEDS: HYDROcodone/acetaminophen (*CRX) 5-325 MG TABLET 1 TAB PO (00:10)
[2022-10-02] MEDS: ALBUTEROL SULFATE NEB 2.5 MG/3 ML INH INHALATION ×3 (02:20→20:44)
[2022-10-02] MEDS: IPRATROPIUM BR 0.02% INH SOLN 0.5 MG/2.5 ML VIAL INHALATION ×3 (02:20→20:44)
[2022-10-02] MEDS: cefTRIAXone 2 GM/NS 100 ML 2 GM/100 ML BAG IVPB (08:23)
[2022-10-02] MEDS: ATORVASTATIN 20 MG TABLET PO (08:23)
[2022-10-02] MEDS: PANTOPRAZOLE 40 MG TABLET PO (08:23)
[2022-10-02] MEDS: TAMSULOSIN HCL 0.4 MG CAPSULE PO (08:23)
[2022-10-02] MEDS: CYANOCOBALAMIN 1,000 MCG TABLET 1000 MCG PO (08:23)
--- NOTE | 2022-10-02 08:23 | WPDGIPROGNO ---
Progress Note: A&P Assessment and Plan (1) Symptomatic anemia: Code(s): D64.9 - Anemia, unspecified Status: Acute Assessment and Plan: multifactorial from metastatic cancer (probably primary lung) egd and colon without malignancy found ulcer at the ileocecal valve (patient says that has been using ibuprofen several times a day) will follow [place], call if questions (2) Colon ulcer: Code(s): K63.3 - Ulcer of intestine Status: Acute Assessment and Plan: probably from nsaid's use no ulcers in egd but continue with ppi daily (3) Metastatic malignant neoplasm of unknown primary site: Code(s): C79.9 - Secondary malignant neoplasm of unspecified site; C80.1 - Malignant (primary) neoplasm, unspecified Status: Acute Assessment and Plan: prognosis if poor oncology on board (4) NSAID long-term use: Code(s): Z79.1 - long-term (current) use of non-steroidal anti-inflammatories (NSAID) Status: Acute (5) GI bleed: Code(s): K92.2 - Gastrointestinal hemorrhage, unspecified Status: Acute Assessment and Plan: bleeding only when contact with scope (6) Pneumonia: Qualifiers: Laterality: right Lung location: middle lobe of lung Pneumonia type: due to unspecified organism Qualified Code(s): J18.9 - Pneumonia, unspecified organism Code(s): J18.9 - Pneumonia, unspecified organism Status: Acute Subjective Date/time seen: 10/02/22 08:23 Interval history: no major changes, chronic pain as usual. Colonoscopy with ulcer at ICV, egd no major findings. h/h better after blood transfusion Review of Systems Review of Systems: All systems reviewed & are unremarkable except as noted in HPI and below Exam Const: General: comfortable and no acute distress HENMT: Face/Nose/Sinus: Normal nares present Eyes: General: appearance normal, both eyes and all related structures Neck: Neck: supple Chest: Other: lesion in rt chest Resp: Auscultation: clear to auscultation bilaterally Cardio: Rate: regular rate Rhythm: regular rhythm GI: Inspection: non-distended GI Palp: Yes Soft to palpation and No Guarding due to palpation present (GI) Auscultation: normal bowel sounds Skin: General skin exam: normal color Neuro: Speech: normal speech Motor exam (neuro): 5/5 motor strength present throughout Extrem: General: normal to inspection Psych: Mental Status: mental status grossly normal Objective Data Vital Signs Vital Signs: Vital Signs - 24 hr 10/01/22 08:35 10/01/22 09:29 10/01/22 10:21 Temperature 98.1 F Pulse Rate 88 102 H 93 Respiratory Rate 16 20 24 H Blood Pressure 108/49 L 100/59 L Pulse Oximetry 94 93 96 Oxygen Delivery Room Air Nasal Cannula Oxygen Flow Rate 2 Fraction of Inspired Oxygen 10/01/22 10:31 10/01/22 10:41 10/01/22 13:40 Temperature Pulse Rate 97 98 83 Respiratory Rate 20 20 15 Blood Pressure 98/59 L 111/66 Pulse Oximetry 95 95 Oxygen Delivery Nasal Cannula Nasal Cannula Oxygen Flow Rate 2 2 Fraction of Inspired Oxygen 10/01/22 13:57 10/01/22 13:59 10/01/22 08:55 Temperature Pulse Rate 85 89 Respiratory Rate 15 15 Blood Pressure Pulse Oximetry 94 Oxygen Delivery Nasal Cannula Oxygen Flow Rate 2 Fraction of Inspired Oxygen 28 10/01/22 12:00 10/01/22 16:00 10/01/22 12:00 Temperature Pulse Rate 106 H Respiratory Rate Blood Pressure Pulse Oximetry 95 98 Oxygen Delivery Nasal Cannula Nasal Cannula Oxygen Flow Rate 2 2 Fraction of Inspired Oxygen 10/01/22 14:00 10/01/22 16:00 10/01/22 18:00 Temperature Pulse Rate 90 94 80 Respiratory Rate Blood Pressure Pulse Oximetry Oxygen Delivery Oxygen Flow Rate Fraction of Inspired Oxygen 10/01/22 18:01 10/01/22 09:08 10/01/22 12:37 Temperature Pulse Rate 155 H 105 H 95 Respiratory Rate 20 16 Blood Pressure Pulse Oximetry 9
--- NOTE | 2022-10-02 11:19 | PM.IMPN ---
Progress Note: A&P Assessment and Plan (1) Anemia: Qualifiers: Anemia type: unspecified type Qualified Code(s): D64.9 - Anemia, unspecified Code(s): D64.9 - Anemia, unspecified Status: Acute Assessment and Plan: likely 2/2 underlying cancer no bleeding monitor and transfuse as needed (2) Pneumonia: Qualifiers: Laterality: right Lung location: middle lobe of lung Pneumonia type: due to unspecified organism Qualified Code(s): J18.9 - Pneumonia, unspecified organism Code(s): J18.9 - Pneumonia, unspecified organism Status: Acute Assessment and Plan: abx (3) GI bleed: Code(s): K92.2 - Gastrointestinal hemorrhage, unspecified Status: Acute Assessment and Plan: no active bleeding (4) Fall: Qualifiers: Encounter type: initial encounter Qualified Code(s): W19.XXXA - Unspecified fall, initial encounter Code(s): W19.XXXA - Unspecified fall, initial encounter Status: Acute Assessment and Plan: Patient fell probably related to weakness from profound anemia. No head injury or LOC. Rt shoulder xray showing right proximal humerus lytic lesion and polyarticular OA. No fracture. He has had bilateral THR and no acute findings by xray. Will need PT/OT when able. (5) Metastatic malignant neoplasm of unknown primary site: Code(s): C79.9 - Secondary malignant neoplasm of unspecified site; C80.1 - Malignant (primary) neoplasm, unspecified Status: Acute Assessment and Plan: Patient presented with a chest wall mass initially status post resection with pathology showing carcinoma. Was felt that this was compatible with lung primary. Lumbar MRI in August showed large mass lesions bilaterally in the pelvis possibly arising from the bilateral iliac bones. PET scan in August showed widespread metastatic disease involving the bilateral adrenal glands, left kidney, numerous bones, lymph nodes, muscle, subcutaneous fat throughout the neck, chest, abdomen and pelvis. It was felt that the most likely primary lesion was a 7.3 cm right lower lobe lung mass. There is also concern for possible GI primary. Port-A-Cath has been placed. Plan is to start chemotherapy. He was also referred for palliative radiation to right shoulder region and bilateral posterior hip lower and back region. Oncology has been consulted here. Imaging here is consistent with prior imaging. he has not started treatment yet. Hospice should be considered. Subjective Date/time seen: 10/02/22 11:19 Interval history: doing better cant walk Exam Narrative: AF 98.2 112/54 92 20 94% HFNC Gen - NARD lying almost flat in bed Chest - clear anteriorly and in the flanks. nml RR CV - RRR S1/S2. Tele showing no significant dysrhythmias Abd - Soft, Positive BS, no HSM Ext - No pedal edema, 2+ Rt, trace-1+ left DP. Right shoulder exam limited due to pain. Psych - Nml mood and affect Skin - Warm and dry Objective Data Vital Signs Vital Signs: Vital Signs - 24 hr 10/01/22 13:40 10/01/22 13:57 10/01/22 13:59 Temperature Pulse Rate 83 85 Respiratory Rate 15 15 Blood Pressure Pulse Oximetry 94 Oxygen Delivery Nasal Cannula Oxygen Flow Rate 2 Fraction of Inspired Oxygen 28 10/01/22 12:00 10/01/22 16:00 10/01/22 12:00 Temperature Pulse Rate 106 H Respiratory Rate Blood Pressure Pulse Oximetry 95 98 Oxygen Delivery Nasal Cannula Nasal Cannula Oxygen Flow Rate 2 2 Fraction of Inspired Oxygen 10/01/22 14:00 10/01/22 16:00 10/01/22 18:00 Temperature Pulse Rate 90 94 80 Respiratory Rate Blood Pressure Pulse Oximetry Oxygen Delivery Oxygen Flow Rate Fraction of Inspired Oxygen 10/01/22 18:01 10/01/22 12:37 10/01/22 12:51 Temperature Pulse Rate 155 H 95 93 Respiratory Rate 16 14 Blood Pressure Pulse Oximetry 95 96 Oxygen Delivery Oxygen Flow Rate
--- NOTE | 2022-10-02 11:46 | PC.NURSE ---
This patient, Ricardo Lemos, was transferred to [facility] on 10/02/22 at 1145. Personal belongings sent with patient. Report given to keron TOMAS. Appropriate documentation sent with patient.
--- NOTE | 2022-10-02 11:50 | PC.NURSE ---
Pt. received from ICU-8 into 307-2 at 1145. Pt oriented to unit policy and procedures.
--- NOTE | 2022-10-02 12:43 | WPDANESPN ---
Anes - Prog Note Post-Op Date/Time: 10/02/22 12:43 Cardiovascular status: normal Respiratory status: other (2L NC) Airway patency: baseline Mental status: baseline Post-Op hydration status: normal Vital Signs: Last Vital Signs Temp 37.1 C 10/02/22 08:00 Pulse 106 H 10/02/22 09:13 Resp 17 10/02/22 09:13 BP 130/82 10/02/22 08:00 Pulse Ox 90 10/02/22 11:58 O2 Del Method Nasal Cannula 10/02/22 11:58 O2 Flow Rate 2 10/02/22 11:58 FiO2 28 10/01/22 13:59 Pain Score (VAS): 0 I/O: Intake & Output 10/01/22 10/02/22 10/02/22 23:59 07:59 15:59 Intake Total 710 240 240 Output Total 800 580 Balance -90 -340 240 Laboratory Tests 10/01/22 18:00 10/01/22 04:23 09/29/22 10/01/22 13:43 18:00 Hgb 9.4 L Hct 29.9 L Crossmatch See Detail Post-procedural complaints: none Patient Feedback: Patient satisfied with anesthetic care.
[2022-10-02] MEDS: AZITHROMYCIN 500 MG/NS 250 ML 500 MG/250 ML BAG 250 MG IVPB (14:35)
--- NOTE | 2022-10-02 17:16 | PCRCNOTE ---
Window of time for administration has passed. See next scheduled administration.
[2022-10-02] MEDS: ACETAMINOPHEN 325 MG TABLET 650 MG PO (19:40)
[2022-10-03] VITALS (8 sets, daily range): BP systolic 120–121; BP diastolic 63–71; PULSE 87–99; RESP 18; TEMP 37.6; O2SAT 91–93
[2022-10-03] MEDS: HYDROcodone/acetaminophen (*CRX) 5-325 MG TABLET 1 TAB PO ×2 (02:09→08:47)
[2022-10-03] MEDS: ALBUTEROL SULFATE NEB 2.5 MG/3 ML INH INHALATION ×2 (02:45→08:05)
[2022-10-03] MEDS: IPRATROPIUM BR 0.02% INH SOLN 0.5 MG/2.5 ML VIAL INHALATION ×2 (02:46→08:05)
[2022-10-03] MEDS: ATORVASTATIN 20 MG TABLET PO (08:48)
[2022-10-03] MEDS: CYANOCOBALAMIN 1,000 MCG TABLET 1000 MCG PO (08:48)
[2022-10-03] MEDS: PANTOPRAZOLE 40 MG TABLET PO (08:48)
[2022-10-03] MEDS: TAMSULOSIN HCL 0.4 MG CAPSULE PO (08:49)
[2022-10-03] MEDS: cefTRIAXone 2 GM/NS 100 ML 2 GM/100 ML BAG IVPB (08:49)
--- NOTE | 2022-10-03 11:28 | PM.DS ---
DS: Admitting Diagnosis Discharge Date October 03, 2022 Admitting Diagnosis Pneumonia, lung cancer DS: Discharge Diagnosis Discharge Diagnosis (1) Anemia: Qualifiers: Anemia type: unspecified type Qualified Code(s): D64.9 - Anemia, unspecified Code(s): D64.9 - Anemia, unspecified Status: Acute Assessment and Plan: likely 2/2 underlying cancer no bleeding monitor and transfuse as needed (2) Pneumonia: Qualifiers: Laterality: right Lung location: middle lobe of lung Pneumonia type: due to unspecified organism Qualified Code(s): J18.9 - Pneumonia, unspecified organism Code(s): J18.9 - Pneumonia, unspecified organism Status: Acute Assessment and Plan: abx (3) GI bleed: Code(s): K92.2 - Gastrointestinal hemorrhage, unspecified Status: Acute Assessment and Plan: no active bleeding (4) Fall: Qualifiers: Encounter type: initial encounter Qualified Code(s): W19.XXXA - Unspecified fall, initial encounter Code(s): W19.XXXA - Unspecified fall, initial encounter Status: Acute Assessment and Plan: Patient fell probably related to weakness from profound anemia. No head injury or LOC. Rt shoulder xray showing right proximal humerus lytic lesion and polyarticular OA. No fracture. He has had bilateral THR and no acute findings by xray. Will need PT/OT when able. (5) Metastatic malignant neoplasm of unknown primary site: Code(s): C79.9 - Secondary malignant neoplasm of unspecified site; C80.1 - Malignant (primary) neoplasm, unspecified Status: Acute Assessment and Plan: Patient presented with a chest wall mass initially status post resection with pathology showing carcinoma. Was felt that this was compatible with lung primary. Lumbar MRI in August showed large mass lesions bilaterally in the pelvis possibly arising from the bilateral iliac bones. PET scan in August showed widespread metastatic disease involving the bilateral adrenal glands, left kidney, numerous bones, lymph nodes, muscle, subcutaneous fat throughout the neck, chest, abdomen and pelvis. It was felt that the most likely primary lesion was a 7.3 cm right lower lobe lung mass. There is also concern for possible GI primary. Port-A-Cath has been placed. Plan is to start chemotherapy. He was also referred for palliative radiation to right shoulder region and bilateral posterior hip lower and back region. Oncology has been consulted here. Imaging here is consistent with prior imaging. he has not started treatment yet. Hospice should be considered. DS: Summary Hospital Course Hospital Course: 76-year-old came in with anemia and pneumonia. Found to have metastatic lung cancer. He is also significantly weak than his baseline. He will be discharged to a [facility] facility on oral antibiotics. He will also need follow-up with Oncology. Time Spent with Patient Time attestation: Total time spent providing and/or coordinating discharge services: Exam Narrative: AF 98.2 112/54 92 20 94% HFNC Gen - NARD lying almost flat in bed Chest - clear anteriorly and in the flanks. nml RR CV - RRR S1/S2. Tele showing no significant dysrhythmias Abd - Soft, Positive BS, no HSM Ext - No pedal edema, 2+ Rt, trace-1+ left DP. Right shoulder exam limited due to pain. Psych - Nml mood and affect Skin - Warm and dry DS: Data Data Completed and Pending Completed studies during hospitalization: Pending at discharge 10/01/22 10:10 Surgical [PTH] Routine Labs on day of discharge: Preliminary micro results at discharge 09/29/22 13:44 Blood Culture - Preliminary Blood 09/29/22 13:44 Blood Culture - Preliminary Blood Discharge Plan Discharge Attending physician on discharge: Efrain Holland Consulting providers: Asia Angela; Mohamud Tinoco; Kobe Comer Discharging Clinician: Efrain Holland
== END 2022-10-03 13:45 | disposition home or self-care (01) | DRG 180 ==
LOC: ANHED 10:20 → ANHICU 16:22 → ANH3MEDSUR 10-02 11:46
PROVIDERS: Internal Medicine Gastroenterology; Nurse Practitioner; Admitting Provider Internal Medicine; Emergency Provider Physician Assistant; PCP Nurse Practitioner Family; Visit Provider Chiropractor
PROC: 0DJ08ZZ Inspection of Upper Intestinal Tract, Via Natural or Artificial Opening Endoscopic (ICD-10-PCS; CPT 43235; principal; 2022-10-01 11:45)
DX: C34.31 Malignant neoplasm of lower lobe, right bronchus or lung (principal); J18.9 Pneumonia, unspecified organism; C77.9 Secondary and unspecified malignant neoplasm of lymph node, unspecified; C79.51 Secondary malignant neoplasm of bone; K92.2 Gastrointestinal hemorrhage, unspecified; C79.02 Secondary malignant neoplasm of left kidney and renal pelvis; C79.72 Secondary malignant neoplasm of left adrenal gland; C79.71 Secondary malignant neoplasm of right adrenal gland; K63.3 Ulcer of intestine; D63.0 Anemia in neoplastic disease; T39.395A Adverse effect of other nonsteroidal anti-inflammatory drugs [NSAID], initial encounter; K57.30 Diverticulosis of large intestine without perforation or abscess without bleeding; K44.9 Diaphragmatic hernia without obstruction or gangrene; W19.XXXA Unspecified fall, initial encounter; N40.0 Benign prostatic hyperplasia without lower urinary tract symptoms; E78.2 Mixed hyperlipidemia; R91.8 Other nonspecific abnormal finding of lung field; F17.210 Nicotine dependence, cigarettes, uncomplicated; Z85.46 Personal history of malignant neoplasm of prostate; M70.31 Other bursitis of elbow, right elbow
CPT/HCPCS: 36415; 36430; 70450; 71045; 72131; 73030; 73070; 73521; 77280; 80053; 80069; 81003; 83605; 83615; 83735; 84443; 85014; 85018; 85025; 85027; 86850; 86900; 86901; 86923; 87040; 88305; 93005; 94640; 96361; 96365; 96367; 96375; 97166; 99285; A9270; C9113; J0456; J0696; J1170; J1940; J2704; J3010; J7030; J7050; J7120; P9016